=== PATIENT | male | born 1930 | race Caucasian/White ===

== ENCOUNTER 2017-04-01 07:03 | Inpatient (IN) | payer MEDICARE, MEDICAID ==
[2017-03-27 12:04] LABS: PRE OP PROTIME 10.7 SECONDS (9.0-12.0)
[2017-03-27 12:06] LABS: BASOPHILS % (AUTO) 0.7 % (0-1); EOSINOPHILS # (AUTO) 0.2 X10'3 (0-0.9); EOSINOPHILS % (AUTO) 2.8 % (0-6); LYMPHOCYTES # (AUTO) 1.4 X10'3 (1.1-4.8); LYMPHOCYTES % (AUTO) 19.2 % (21-51); MEAN CORPUSCULAR HEMOGLOBIN 32.8 PG (27.0-31.0); MEAN CORPUSCULAR HGB CONC 34.3 % (33.0-36.5); MEAN CORPUSCULAR VOLUME 95.6 FL (78-98); MEAN PLATELET VOLUME 7.4 FL (7.4-10.4); MONOCYTES # (AUTO) 0.7 X10'3 (0-0.9); MONOCYTES % (AUTO) 10.3 % (2-12); NEUTROPHILS # (AUTO) 4.8 X10'3 (1.8-7.7); PRE OP HEMATOCRIT 40.9 % (42.0-52.0); PRE OP PLATELET COUNT 188 X10'3 (140-440); RED BLOOD COUNT 4.27 X10'6 (4.70-6.10); RED CELL DISTRIBUTION WIDTH 13.9 % (11.5-14.5)
[2017-03-27 12:07] LABS: ALBUMIN 3.8 G/DL (3.4-5.0); ALBUMIN/GLOBULIN RATIO 1.1 (1.1-1.5); ALKALINE PHOSPHATASE 97 IU/L (46-116); BLOOD UREA NITROGEN 21 MG/DL (7-18); BUN/CREATININE RATIO 15.4 (5.4-32.0); CALCIUM 8.9 MG/DL (8.5-10.1); CHLORIDE 106 MMOL/L (99-107); CREATININE 1.36 MG/DL (0.60-1.10); PRE OP ALT 34 U/L (30-65); PRE OP ANION GAP 9 (8-16); PRE OP AST 19 U/L (10-37); PRE OP BILIRUB, TOTAL 0.4 MG/DL (0.0-1.0); PRE OP GLUCOSE 118 MG/DL (70-104); PRE OP POTASSIUM 3.9 MMOL/L (3.4-5.1); PRE OP SODIUM 143 MMOL/L (135-145); TOTAL CARBON DIOXIDE 28.2 MMOL/L (24-32); TOTAL PROTEIN 7.4 G/DL (6.4-8.2); eGFR 50 ML/MIN
[2017-04-01] VITALS (22 sets, daily range): BP systolic 98–185; BP diastolic 49–86
[~2017-04-01] VITALS: Ht 175.3 cm; Wt 79.4 kg
[2017-04-01] MEDS: HYDROmorphone/NS 1 mg/ml CADD 50 ML IV SCH ×4 (01:00→21:00)
[~2017-04-01 07:03] MED LIST: APIX5TAB3 PO; DILT180C53 PO; FAMO20TA8 PO; FERR325T39 PO; FISH1CAP15 PO; FLUD0.1T PO; HYDR-565 PO; LISI10TA4 PO; OXYB5TAB80 PO; PRAV80TA3 PO; SERT100T10 PO; SUCR1TAB34 PO; cefazolin/dext.iso 2gm/50ml 50 ML IV ONE; famotidine 20mg tablet PO ONE
[2017-04-01] MEDS: ringers solution, lacted 1,000 ML IV SCH ×2 (07:39→14:19)
[2017-04-01] MEDS ORDERED: LIDOcaine 1% (10mg/ml) 2ml vial ONE (09:22)
[2017-04-01] MEDS ORDERED: heparin 10,000 units/1 ML INJ ONE (09:23)
[2017-04-01] MEDS ORDERED: ceFAZolin 1000mg inj ONE (09:23)
[2017-04-01] MEDS ORDERED: etomidate 2mg/ml inj. ONE (09:54)
[2017-04-01] MEDS ORDERED: fentaNYL/PF 50MCG/1 ML 2ML syringe ONE ×3 (09:54→11:44)
[2017-04-01] MEDS ORDERED: LIDOcaine 2% (20mg/ml) 5ml vial ONE (09:57)
[2017-04-01] MEDS ORDERED: rocuronium 10mg/ml inj IV ONE (09:57)
[2017-04-01] MEDS ORDERED: sevoflurane 250ml liquid IH ONE (10:00)
[2017-04-01] MEDS ORDERED: dexamethasone sod phosphate 4mg/ml inj. ONE (10:30)
[2017-04-01] MEDS ORDERED: propofol inj 20 ML IV ONE (10:32)
[2017-04-01] MEDS ORDERED: neostigmine methylsulfate 1 MG/ML 10ml vial ONE (11:12)
[2017-04-01] MEDS ORDERED: labetalol 5mg/ml 20ml inj. IV ONE (11:12)
[2017-04-01] MEDS ORDERED: ondansetron/PF 4mg/2ml inj ONE (11:12)
[2017-04-01] MEDS ORDERED: ePHEDrine 50MG/ML INJ. ONE (11:12)
[2017-04-01] MEDS ORDERED: glycopyrrolate 0.2mg/ml inj ONE (11:12)
[2017-04-01 12:41] LABS: ISTAT HGB 11.2 g/dl (14.0-18.0); ISTAT IONIZED CALCIUM 1.27 mmol/L (1.03-1.32)
[2017-04-01] MEDS ORDERED: morphine 2 MG/ML inj. syringe ONE (12:48)
[2017-04-01] MEDS ORDERED: ondansetron/PF 4mg/2ml inj IV PRN ×2 (12:50→13:15)
[2017-04-01] MEDS ORDERED: HYDROmorphone inj. 0.5 MG/0.5 ML DISP.SYRIN IV PRN (12:50)
[2017-04-01] MEDS ORDERED: morphine 2 MG/ML inj. syringe IV PRN (12:50)
[2017-04-01] MEDS ORDERED: ringers solution, lacted 1,000 ML IV SCH (12:50)
[2017-04-01] MEDS: cefazolin 1gm/NS 100mL 100 ML IV SCH (15:34)
[2017-04-01] MEDS ORDERED: CADD PCA waste documentation MC SCH (15:55)
[2017-04-01] MEDS ORDERED: HYDROcodone/acetaminophen 10/325mg tab PO SCH (19:35)
[2017-04-01] MEDS ORDERED: sucralfate 1 gm tablet PO SCH (20:00)
[2017-04-01] MEDS ORDERED: apixaban 5mg tablet PO SCH (20:00)
[2017-04-01] MEDS: fludrocortisone acetate 0.1mg tablet PO SCH (21:32)
[2017-04-01] MEDS: sucralfate 1 gm tablet PO SCH (21:33)
[2017-04-01] MEDS: atorvastatin 20mg tablet PO SCH (21:33)
[2017-04-01] MEDS: diltiazem CD 180mg cap (once-daily) PO SCH (21:33)
[2017-04-01] MEDS: famotidine 20mg tablet PO SCH (21:33)
[2017-04-01] MEDS: ferrous sulfate 325mg tablet PO SCH (21:33)
[2017-04-01] MEDS: oxybutynin 5mg tablet PO SCH (21:34)
[2017-04-02] VITALS (18 sets, daily range): BP systolic 88–157; BP diastolic 47–79
[2017-04-02] MEDS: HYDROmorphone/NS 1 mg/ml CADD 50 ML IV SCH ×12 (01:00→23:00)
[2017-04-02] MEDS: cefazolin 1gm/NS 100mL 100 ML IV SCH ×2 (01:10→07:28)
[2017-04-02] MEDS ORDERED: metoprolol tartrate 1mg/ml inj IV ONE ×2 (02:40→02:45)
[2017-04-02 05:54] LABS: BASOPHILS % (AUTO) 0 % (0-1); EOSINOPHILS # (AUTO) 0.1 X10'3 (0-0.9); EOSINOPHILS % (AUTO) 1.2 % (0-6); HEMATOCRIT 30.1 % (42.0-52.0); HEMOGLOBIN 10.2 g/dl (14.0-17.9); LYMPHOCYTES # (AUTO) 0.9 X10'3 (1.1-4.8); LYMPHOCYTES % (AUTO) 7.3 % (21-51); MEAN CORPUSCULAR HEMOGLOBIN 32.9 PG (27.0-31.0); MEAN CORPUSCULAR HGB CONC 33.9 % (33.0-36.5); MEAN CORPUSCULAR VOLUME 97.3 FL (78-98); MEAN PLATELET VOLUME 7.9 FL (7.4-10.4); MONOCYTES # (AUTO) 1.2 X10'3 (0-0.9); MONOCYTES % (AUTO) 10.4 % (2-12); NEUTROPHILS # (AUTO) 9.6 X10'3 (1.8-7.7); NEUTROPHILS % (AUTO) 81.1 % (42-75); PLATELET COUNT 159 X10'3 (140-440); RED BLOOD COUNT 3.09 X10'6 (4.70-6.10); RED CELL DISTRIBUTION WIDTH 13.8 % (11.5-14.5); WHITE BLOOD COUNT 11.9 X10'3 (4.5-11.0)
[2017-04-02 06:13] LABS: ALANINE AMINOTRANSFERASE 25 U/L (12-78); ALBUMIN 3.1 G/DL (3.4-5.0); ALBUMIN/GLOBULIN RATIO 0.8 (1.1-1.5); ALKALINE PHOSPHATASE 79 IU/L (46-116); ANION GAP 8 (8-16); ASPARTATE AMINO TRANSFERASE 37 U/L (10-37); BILIRUBIN,TOTAL 0.3 MG/DL (0.1-1.0); BLOOD UREA NITROGEN 27 MG/DL (7-18); BUN/CREATININE RATIO 16.1 (5.4-32.0); CALCIUM 8.4 MG/DL (8.5-10.1); CHLORIDE 109 MMOL/L (99-107); CREATININE 1.68 MG/DL (0.60-1.10); GLUCOSE 134 MG/DL (70-104); MAGNESIUM 1.9 MG/DL (1.5-2.4); PHOSPHORUS 3.3 MG/DL (2.3-4.5); POTASSIUM 4.9 MMOL/L (3.5-5.1); SODIUM 144 MMOL/L (135-145); TOTAL CARBON DIOXIDE 27.4 MMOL/L (24-32); TOTAL PROTEIN 6.8 G/DL (6.4-8.2); eGFR 39 ML/MIN
[2017-04-02] MEDS: sucralfate 1 gm tablet PO SCH ×2 (07:28→18:40)
[2017-04-02] MEDS: sertraline 50mg tablet PO SCH (07:29)
[2017-04-02] MEDS: famotidine 20mg tablet PO SCH ×2 (07:29→20:38)
[2017-04-02] MEDS: ferrous sulfate 325mg tablet PO SCH ×2 (07:29→20:39)
[2017-04-02] MEDS: oxybutynin 5mg tablet PO SCH ×2 (07:29→20:40)
[2017-04-02] MEDS: OMEGA-3/DHA/EPA/FISH OIL 1 EACH CAPSULE.DR PO SCH (07:29)
[2017-04-02] MEDS: lisinopril 5mg tablet PO SCH (07:30)
[2017-04-02] MEDS ORDERED: enoxaparin 40mg/0.4ml syringe SQ SCH ×2 (08:00)
[2017-04-02] MEDS: diltiazem CD 180mg cap (once-daily) PO SCH (20:38)
[2017-04-02] MEDS: atorvastatin 20mg tablet PO SCH (20:39)
[2017-04-02] MEDS: fludrocortisone acetate 0.1mg tablet PO SCH (20:40)
[2017-04-03] VITALS: BP 116/64
[2017-04-03] MEDS: HYDROmorphone/NS 1 mg/ml CADD 50 ML IV SCH ×12 (01:00→23:00)
[2017-04-03] MEDS ORDERED: furosemide 20 MG/2 ML vial IV ONE (01:15)
[2017-04-03 07:30] VITALS: BP 131/57
[2017-04-03] MEDS: sertraline 50mg tablet PO SCH (08:16)
[2017-04-03] MEDS: famotidine 20mg tablet PO SCH ×2 (08:16→20:04)
[2017-04-03] MEDS: oxybutynin 5mg tablet PO SCH ×2 (08:17→20:04)
[2017-04-03] MEDS: ferrous sulfate 325mg tablet PO SCH ×2 (08:17→20:04)
[2017-04-03] MEDS: lisinopril 5mg tablet PO SCH (08:17)
[2017-04-03] MEDS: sucralfate 1 gm tablet PO SCH ×2 (08:56→17:27)
[2017-04-03] MEDS: apixaban 5mg tablet PO SCH ×2 (09:18→20:04)
[2017-04-03] MEDS: OMEGA-3/DHA/EPA/FISH OIL 1 EACH CAPSULE.DR PO SCH (09:18)
[2017-04-03 11:30] VITALS: BP 98/51
[2017-04-03 19:05] VITALS: BP 103/53
[2017-04-03] MEDS: atorvastatin 20mg tablet PO SCH (20:04)
[2017-04-03] MEDS: fludrocortisone acetate 0.1mg tablet PO SCH (20:04)
[2017-04-03] MEDS: diltiazem CD 180mg cap (once-daily) PO SCH (20:04)
[2017-04-04] VITALS: BP 117/61
[2017-04-04] MEDS: HYDROmorphone/NS 1 mg/ml CADD 50 ML IV SCH ×12 (01:00→23:00)
[2017-04-04 07:46] VITALS: BP 105/62
[2017-04-04] MEDS: ferrous sulfate 325mg tablet PO SCH ×2 (07:51→20:54)
[2017-04-04] MEDS: famotidine 20mg tablet PO SCH ×2 (07:51→20:54)
[2017-04-04] MEDS: lisinopril 5mg tablet PO SCH (07:52)
[2017-04-04] MEDS: apixaban 5mg tablet PO SCH ×2 (07:52→20:54)
[2017-04-04] MEDS: sertraline 50mg tablet PO SCH (07:52)
[2017-04-04] MEDS: OMEGA-3/DHA/EPA/FISH OIL 1 EACH CAPSULE.DR PO SCH (07:52)
[2017-04-04] MEDS: sucralfate 1 gm tablet PO SCH ×2 (07:52→17:11)
[2017-04-04] MEDS: enoxaparin 40mg/0.4ml syringe SUBCUT SCH (07:56)
[2017-04-04] MEDS: oxybutynin 5mg tablet PO SCH ×2 (07:57→20:54)
[2017-04-04 20:00] VITALS: BP 108/44
[2017-04-04] MEDS: fludrocortisone acetate 0.1mg tablet PO SCH (20:54)
[2017-04-04] MEDS: diltiazem CD 180mg cap (once-daily) PO SCH (20:54)
[2017-04-04] MEDS: atorvastatin 20mg tablet PO SCH (20:54)
[2017-04-04 23:48] VITALS: BP 121/58
[2017-04-05] MEDS: HYDROmorphone/NS 1 mg/ml CADD 50 ML IV SCH ×6 (01:00→11:00)
[2017-04-05 08:00] VITALS: BP 139/65
[2017-04-05] MEDS: OMEGA-3/DHA/EPA/FISH OIL 1 EACH CAPSULE.DR PO SCH (09:08)
[2017-04-05] MEDS: famotidine 20mg tablet PO SCH ×2 (09:08→20:53)
[2017-04-05] MEDS: apixaban 5mg tablet PO SCH ×2 (09:08→20:53)
[2017-04-05] MEDS: oxybutynin 5mg tablet PO SCH ×2 (09:08→20:53)
[2017-04-05] MEDS: sucralfate 1 gm tablet PO SCH ×2 (09:08→17:45)
[2017-04-05] MEDS: ferrous sulfate 325mg tablet PO SCH ×2 (09:08→20:53)
[2017-04-05] MEDS: lisinopril 5mg tablet PO SCH (09:09)
[2017-04-05] MEDS: sertraline 50mg tablet PO SCH (09:09)
[2017-04-05] MEDS: enoxaparin 40mg/0.4ml syringe SUBCUT SCH (09:09)
[2017-04-05 12:00] VITALS: BP 142/69
[2017-04-05] MEDS ORDERED: HYDROcodone/acetaminophen 10/325mg tab PO PRN (14:35)
[2017-04-05 18:00] VITALS: BP 152/66
[2017-04-05] MEDS: diltiazem CD 180mg cap (once-daily) PO SCH (20:52)
[2017-04-05] MEDS: atorvastatin 20mg tablet PO SCH (20:53)
[2017-04-05] MEDS: fludrocortisone acetate 0.1mg tablet PO SCH (20:53)
[2017-04-05] MEDS: HYDROcodone/acetaminophen 10/325mg tab PO PRN (20:54)
[2017-04-06] VITALS: BP 124/57
[2017-04-06] MEDS: HYDROcodone/acetaminophen 10/325mg tab PO PRN ×2 (05:47→15:23)
[2017-04-06 08:00] VITALS: BP 128/68
[2017-04-06] MEDS: OMEGA-3/DHA/EPA/FISH OIL 1 EACH CAPSULE.DR PO SCH (08:04)
[2017-04-06] MEDS: apixaban 5mg tablet PO SCH (08:05)
[2017-04-06] MEDS: sertraline 50mg tablet PO SCH (08:05)
[2017-04-06] MEDS: lisinopril 5mg tablet PO SCH (08:05)
[2017-04-06] MEDS: enoxaparin 40mg/0.4ml syringe SUBCUT SCH (08:05)
[2017-04-06] MEDS: sucralfate 1 gm tablet PO SCH (08:05)
[2017-04-06] MEDS: famotidine 20mg tablet PO SCH (08:05)
[2017-04-06] MEDS: oxybutynin 5mg tablet PO SCH (08:05)
[2017-04-06] MEDS: ferrous sulfate 325mg tablet PO SCH (08:05)
[2017-04-06 11:00] VITALS: BP 111/48
== END 2017-04-06 16:10 | DRG 271 ==
LOC: PAS IN 07:03 → EDSTATUS 10:15 → ICU 2S 13:35 → MED 3N 04-02 16:20
PROVIDERS: ADMIT Surgery; ATTEND Surgery
PROC: 041H0JQ Bypass Right External Iliac Artery to Lower Extremity Artery with Synthetic Substitute, Open Approach (ICD-10-PCS; principal; 2017-04-01 09:56)
DX: I73.9 Peripheral vascular disease, unspecified (principal); I69.351 Hemiplegia and hemiparesis following cerebral infarction affecting right dominant side; I48.91 Unspecified atrial fibrillation; M19.90 Unspecified osteoarthritis, unspecified site; I69.320 Aphasia following cerebral infarction; I25.2 Old myocardial infarction; Z79.899 Other long term (current) drug therapy; Z85.9 Personal history of malignant neoplasm, unspecified; Z82.5 Family history of asthma and other chronic lower respiratory diseases; Z80.9 Family history of malignant neoplasm, unspecified; Z87.891 Personal history of nicotine dependence
CPT/HCPCS: 36415; 71046; 80047; 80053; 83735; 84100; 84484; 85025; 85610; 85730; 86885; 86900; 86901; 87070; 94760; 97110; 97162; 97530; A6213; A6255; A6258; A6446; A6449; A7000; C1758; C1768; J0690; J1100; J1170; J1644; J1650; J1940; J2001; J2270; J2405; J2704; J2710; J3010; J3490; J7030; J7120

== ENCOUNTER 2017-06-15 11:18 | Emergency (ER) | payer MEDICARE, MEDICAID ==
[~2017-06-15] VITALS: Ht 172.7 cm; Wt 80.0 kg
[~2017-06-15 11:18] MED LIST changes: -cefazolin/dext.iso 2gm/50ml 50 ML IV ONE; -famotidine 20mg tablet PO ONE
[2017-06-15] MEDS ORDERED: MORPHINE 2MG in 2ml NS syringe IV PRN (12:10)
[2017-06-15] MEDS ORDERED: HYDROcodone/acetaminophen 5mg/325mg tablet PO ONE (12:10)
[2017-06-15 12:14] LABS: BASOPHILS % (AUTO) 0.5 % (0-1); EOSINOPHILS # (AUTO) 0.3 X10'3 (0-0.9); EOSINOPHILS % (AUTO) 3.8 % (0-6); HEMATOCRIT 36.2 % (42.0-52.0); HEMOGLOBIN 12.2 g/dl (14.0-17.9); LYMPHOCYTES # (AUTO) 1.7 X10'3 (1.1-4.8); MEAN CORPUSCULAR HEMOGLOBIN 31.6 PG (27.0-31.0); MEAN CORPUSCULAR HGB CONC 33.6 % (33.0-36.5); MEAN CORPUSCULAR VOLUME 94.1 FL (78-98); MEAN PLATELET VOLUME 7.2 FL (7.4-10.4); MONOCYTES # (AUTO) 0.9 X10'3 (0-0.9); MONOCYTES % (AUTO) 12.8 % (2-12); NEUTROPHILS # (AUTO) 4.1 X10'3 (1.8-7.7); NEUTROPHILS % (AUTO) 58.9 % (42-75); PLATELET COUNT 169 X10'3 (140-440); RED BLOOD COUNT 3.85 X10'6 (4.70-6.10); RED CELL DISTRIBUTION WIDTH 14.8 % (11.5-14.5)
[2017-06-15 12:23] LABS: ALBUMIN 3.3 G/DL (3.4-5.0); ANION GAP 9 (8-16); ASPARTATE AMINO TRANSFERASE 14 U/L (10-37); BILIRUBIN,TOTAL 0.3 MG/DL (0.1-1.0); BLOOD UREA NITROGEN 24 MG/DL (7-18); BUN/CREATININE RATIO 20.3 (5.4-32.0); CALCIUM 8.9 MG/DL (8.5-10.1); CHLORIDE 107 MMOL/L (99-107); CREATININE 1.18 MG/DL (0.60-1.10); GLUCOSE 96 MG/DL (70-104); POTASSIUM 4.6 MMOL/L (3.5-5.1); SODIUM 142 MMOL/L (135-145); TOTAL CARBON DIOXIDE 26.4 MMOL/L (24-32); TOTAL PROTEIN 6.7 G/DL (6.4-8.2); eGFR 59 ML/MIN
[2017-06-15 12:24] LABS: ALANINE AMINOTRANSFERASE 23 U/L (12-78); ALKALINE PHOSPHATASE 84 IU/L (46-116)
[2017-06-15 12:33] LABS: PARTIAL THROMBOPLASTIN TIME 29 SECONDS (22-32); PROTHROMBIN TIME 10.8 SECONDS (9.0-12.0)
[2017-06-15 12:56] VITALS: BP 153/66
[2017-06-15] MEDS ORDERED: POTA25TA11 PO (13:16)
[2017-06-15] MEDS ORDERED: FURO-150 PO (13:16)
== END 2017-06-15 13:23 | disposition home or self-care (01) ==
LOC: ER 11:19
DX: S70.01XA Contusion of right hip, initial encounter (principal); I25.10 Atherosclerotic heart disease of native coronary artery without angina pectoris; I10 Essential (primary) hypertension; G89.29 Other chronic pain; F03.90 Unspecified dementia, unspecified severity, without behavioral disturbance, psychotic disturbance, mood disturbance, and anxiety; E78.00 Pure hypercholesterolemia, unspecified; Z86.73 Personal history of transient ischemic attack (TIA), and cerebral infarction without residual deficits; Z79.899 Other long term (current) drug therapy; W18.30XA Fall on same level, unspecified, initial encounter; Y93.17 Activity, water skiing and wake boarding; Y92.89 Other specified places as the place of occurrence of the external cause; Y99.8 Other external cause status
CPT/HCPCS: 36415; 71045; 73502; 80053; 85025; 85610; 85730; 86885; 86900; 86901; 93005; 96374; 99285; J2274

== ENCOUNTER 2017-08-17 11:21 | Inpatient (IN) | payer MEDICARE, MEDICAID ==
[~2017-08-17] VITALS: Ht 175.3 cm; Wt 93.0 kg
[~2017-08-17 11:21] MED LIST changes: +FURO-150 PO; +POTA25TA11 PO
[2017-08-17 11:57] LABS: BASOPHILS % (AUTO) 0.5 % (0-1); EOSINOPHILS # (AUTO) 0.3 X10'3 (0-0.9); EOSINOPHILS % (AUTO) 3.5 % (0-6); HEMATOCRIT 35.5 % (42.0-52.0); HEMOGLOBIN 11.9 g/dl (14.0-17.9); LYMPHOCYTES # (AUTO) 1.4 X10'3 (1.1-4.8); LYMPHOCYTES % (AUTO) 17.2 % (21-51); MEAN CORPUSCULAR HEMOGLOBIN 31.7 PG (27.0-31.0); MEAN CORPUSCULAR HGB CONC 33.5 % (33.0-36.5); MEAN CORPUSCULAR VOLUME 94.8 FL (78-98); MEAN PLATELET VOLUME 7.6 FL (7.4-10.4); MONOCYTES # (AUTO) 0.9 X10'3 (0-0.9); MONOCYTES % (AUTO) 11.4 % (2-12); NEUTROPHILS # (AUTO) 5.5 X10'3 (1.8-7.7); NEUTROPHILS % (AUTO) 67.4 % (42-75); PLATELET COUNT 196 X10'3 (140-440); RED BLOOD COUNT 3.75 X10'6 (4.70-6.10); RED CELL DISTRIBUTION WIDTH 13.7 % (11.5-14.5); WHITE BLOOD COUNT 8.2 X10'3 (4.5-11.0)
[2017-08-17 12:10] LABS: ALANINE AMINOTRANSFERASE 54 U/L (12-78); ALBUMIN 3.1 G/DL (3.4-5.0); ALBUMIN/GLOBULIN RATIO 0.7 (1.1-1.5); ALKALINE PHOSPHATASE 99 IU/L (46-116); ANION GAP 5 (8-16); ASPARTATE AMINO TRANSFERASE 63 U/L (10-37); BILIRUBIN,TOTAL 0.4 MG/DL (0.1-1.0); BLOOD UREA NITROGEN 27 MG/DL (7-18); CALCIUM 9.1 MG/DL (8.5-10.1); CHLORIDE 111 MMOL/L (99-107); CREATININE 1.35 MG/DL (0.60-1.10); GLUCOSE 110 MG/DL (70-104); POTASSIUM 3.8 MMOL/L (3.5-5.1); SODIUM 144 MMOL/L (135-145); TOTAL CARBON DIOXIDE 28.4 MMOL/L (24-32); TOTAL PROTEIN 7.4 G/DL (6.4-8.2); eGFR 50 ML/MIN
[2017-08-17] MEDS ORDERED: ondansetron/PF 4mg/2ml inj IV PRN (15:05)
[2017-08-17] MEDS ORDERED: potassium Cl 40MEQ/NS 500ml 500 ML IV PRN ×2 (15:05)
[2017-08-17] MEDS ORDERED: ipratropium/albuterol 3ml nebule NEB PRN (15:05)
[2017-08-17] MEDS ORDERED: magnesium 1gm/100ml D5W IVPB 50 ML IV PRN (15:05)
[2017-08-17] MEDS ORDERED: magnesium 4gm in 100ml NS 100 ML IV PRN (15:05)
[2017-08-17] MEDS ORDERED: acetaminophen 325mg tablet PO PRN (15:05)
[2017-08-17] MEDS ORDERED: potassium Cl 20 mEq SR tablet PO PRN ×2 (15:05)
[2017-08-17] MEDS ORDERED: mag hydrox/Alum hydrox/simeth 30ml oral suspension PO PRN (15:05)
[2017-08-17] MEDS ORDERED: benzonatate 100mg capsule PO PRN (15:05)
[2017-08-17] MEDS ORDERED: HYDROcodone/acetaminophen 10/325mg tab PO PRN (15:20)
[2017-08-17 16:05] VITALS: BP 176/68
[2017-08-17] MEDS: normal saline 1000ml 1,000 ML IV SCH (17:15)
[2017-08-17 18:38] VITALS: BP 191/70
[2017-08-17 20:00] VITALS: BP 186/71
[2017-08-17] MEDS: fludrocortisone acetate 0.1mg tablet PO SCH (20:07)
[2017-08-17] MEDS: diltiazem CD 180mg cap (once-daily) PO SCH (20:07)
[2017-08-17] MEDS: sucralfate 1 gm tablet PO SCH (20:07)
[2017-08-17] MEDS: oxybutynin 5mg tablet PO SCH (20:07)
[2017-08-17] MEDS: methylPREDNISolone sod succ 125mg/2ml vial IV SCH (20:08)
[2017-08-17] MEDS: ferrous sulfate 325mg tablet PO SCH (20:08)
[2017-08-17] MEDS: famotidine 20mg tablet PO SCH (20:08)
[2017-08-17] MEDS: apixaban 5mg tablet PO SCH (20:08)
[2017-08-17] MEDS: pravastatin 40mg tablet PO SCH (20:08)
[2017-08-17] MEDS: docusate sod 100mg capsule PO SCH (20:08)
[2017-08-17 21:18] VITALS: BP 186/71
[2017-08-17 22:50] VITALS: BP 170/84
[2017-08-18] MEDS: normal saline 1000ml 1,000 ML IV SCH (03:06)
[2017-08-18 05:00] VITALS: BP 151/66
[2017-08-18 05:40] LABS: BASOPHILS % (AUTO) 0.2 % (0-1); EOSINOPHILS % (AUTO) 0 % (0-6); HEMATOCRIT 37.8 % (42.0-52.0); HEMOGLOBIN 12.7 g/dl (14.0-17.9); LYMPHOCYTES # (AUTO) 0.7 X10'3 (1.1-4.8); LYMPHOCYTES % (AUTO) 10.8 % (21-51); MEAN CORPUSCULAR HEMOGLOBIN 31.8 PG (27.0-31.0); MEAN CORPUSCULAR HGB CONC 33.5 % (33.0-36.5); MEAN CORPUSCULAR VOLUME 95.1 FL (78-98); MEAN PLATELET VOLUME 7.7 FL (7.4-10.4); MONOCYTES # (AUTO) 0.1 X10'3 (0-0.9); MONOCYTES % (AUTO) 1.1 % (2-12); NEUTROPHILS # (AUTO) 5.8 X10'3 (1.8-7.7); NEUTROPHILS % (AUTO) 87.9 % (42-75); PLATELET COUNT 202 X10'3 (140-440); RED BLOOD COUNT 3.98 X10'6 (4.70-6.10); RED CELL DISTRIBUTION WIDTH 13.5 % (11.5-14.5); WHITE BLOOD COUNT 6.6 X10'3 (4.5-11.0)
[2017-08-18 06:00] LABS: ALANINE AMINOTRANSFERASE 48 U/L (12-78); ALBUMIN 2.8 G/DL (3.4-5.0); ALBUMIN/GLOBULIN RATIO 0.6 (1.1-1.5); ALKALINE PHOSPHATASE 97 IU/L (46-116); ANION GAP 11 (8-16); ASPARTATE AMINO TRANSFERASE 42 U/L (10-37); BILIRUBIN,TOTAL 0.3 MG/DL (0.1-1.0); BLOOD UREA NITROGEN 21 MG/DL (7-18); BUN/CREATININE RATIO 17.1 (5.4-32.0); CALCIUM 8.8 MG/DL (8.5-10.1); CHLORIDE 107 MMOL/L (99-107); CHOL/HDL RATIO 3.4 (0.00-4.99); CHOLESTEROL 108 MG/DL (0-200); CREATININE 1.23 MG/DL (0.60-1.10); GLUCOSE 165 MG/DL (70-104); HDL CHOLESTEROL 32 MG/DL (35-60); LDL CHOLESTEROL 63 MG/DL (50-100); POTASSIUM 4.5 MMOL/L (3.5-5.1); SODIUM 142 MMOL/L (135-145); TOTAL CARBON DIOXIDE 23.6 MMOL/L (24-32); TOTAL PROTEIN 7.2 G/DL (6.4-8.2); TRIGLYCERIDES 66 MG/DL (20-135); eGFR 56 ML/MIN
[2017-08-18] MEDS: K and/or MAG REPLACEMENT MC SCH (08:00)
[2017-08-18] MEDS: oxybutynin 5mg tablet PO SCH ×2 (09:12→19:26)
[2017-08-18] MEDS: sertraline 50mg tablet PO SCH (09:12)
[2017-08-18] MEDS: famotidine 20mg tablet PO SCH ×2 (09:12→19:26)
[2017-08-18] MEDS: ferrous sulfate 325mg tablet PO SCH ×2 (09:13→19:27)
[2017-08-18] MEDS: sucralfate 1 gm tablet PO SCH ×2 (09:13→19:24)
[2017-08-18] MEDS: apixaban 5mg tablet PO SCH ×2 (09:13→19:27)
[2017-08-18] MEDS: OMEGA-3/DHA/EPA/FISH OIL 1 EACH CAPSULE.DR PO SCH (09:13)
[2017-08-18] MEDS: lisinopril 10 MG tablet PO SCH (09:13)
[2017-08-18] MEDS: docusate sod 100mg capsule PO SCH ×2 (09:13→19:31)
[2017-08-18] MEDS: methylPREDNISolone sod succ 125mg/2ml vial IV SCH ×2 (09:16→19:24)
[2017-08-18 10:00] VITALS: BP 152/67
[2017-08-18 18:00] VITALS: BP 166/66
[2017-08-18] MEDS: pravastatin 40mg tablet PO SCH (19:26)
[2017-08-18] MEDS: fludrocortisone acetate 0.1mg tablet PO SCH (19:26)
[2017-08-18] MEDS: diltiazem CD 180mg cap (once-daily) PO SCH (19:26)
[2017-08-18 22:00] VITALS: BP 160/85
[2017-08-19 05:00] VITALS: BP 118/64
[2017-08-19 06:02] LABS: BASOPHILS % (AUTO) 0.1 % (0-1); EOSINOPHILS # (AUTO) 0.1 X10'3 (0-0.9); EOSINOPHILS % (AUTO) 0.8 % (0-6); HEMATOCRIT 33.2 % (42.0-52.0); HEMOGLOBIN 11.3 g/dl (14.0-17.9); LYMPHOCYTES # (AUTO) 0.7 X10'3 (1.1-4.8); LYMPHOCYTES % (AUTO) 5.4 % (21-51); MEAN CORPUSCULAR HEMOGLOBIN 31.9 PG (27.0-31.0); MEAN CORPUSCULAR HGB CONC 33.9 % (33.0-36.5); MEAN CORPUSCULAR VOLUME 94.2 FL (78-98); MEAN PLATELET VOLUME 8.1 FL (7.4-10.4); MONOCYTES # (AUTO) 0.4 X10'3 (0-0.9); MONOCYTES % (AUTO) 2.8 % (2-12); NEUTROPHILS # (AUTO) 12.4 X10'3 (1.8-7.7); NEUTROPHILS % (AUTO) 90.9 % (42-75); PLATELET COUNT 199 X10'3 (140-440); RED BLOOD COUNT 3.53 X10'6 (4.70-6.10); RED CELL DISTRIBUTION WIDTH 13.5 % (11.5-14.5); WHITE BLOOD COUNT 13.7 X10'3 (4.5-11.0)
[2017-08-19 06:23] LABS: ALANINE AMINOTRANSFERASE 45 U/L (12-78); ALBUMIN 2.7 G/DL (3.4-5.0); ALBUMIN/GLOBULIN RATIO 0.7 (1.1-1.5); ALKALINE PHOSPHATASE 90 IU/L (46-116); ANION GAP 11 (8-16); ASPARTATE AMINO TRANSFERASE 30 U/L (10-37); BILIRUBIN,TOTAL 0.2 MG/DL (0.1-1.0); BLOOD UREA NITROGEN 32 MG/DL (7-18); BUN/CREATININE RATIO 26.2 (5.4-32.0); CALCIUM 8.3 MG/DL (8.5-10.1); CHLORIDE 107 MMOL/L (99-107); CREATININE 1.22 MG/DL (0.60-1.10); GLUCOSE 179 MG/DL (70-104); MAGNESIUM 1.9 MG/DL (1.5-2.4); POTASSIUM 3.9 MMOL/L (3.5-5.1); SODIUM 142 MMOL/L (135-145); TOTAL CARBON DIOXIDE 23.7 MMOL/L (24-32); TOTAL PROTEIN 6.7 G/DL (6.4-8.2); eGFR 57 ML/MIN
[2017-08-19] MEDS: K and/or MAG REPLACEMENT MC SCH (08:04)
[2017-08-19] MEDS: ferrous sulfate 325mg tablet PO SCH ×2 (08:14→20:38)
[2017-08-19] MEDS: methylPREDNISolone sod succ 125mg/2ml vial IV SCH (08:14)
[2017-08-19] MEDS: docusate sod 100mg capsule PO SCH (08:14)
[2017-08-19] MEDS: apixaban 5mg tablet PO SCH ×2 (08:14→20:38)
[2017-08-19] MEDS: sertraline 50mg tablet PO SCH (08:14)
[2017-08-19] MEDS: famotidine 20mg tablet PO SCH ×2 (08:14→20:38)
[2017-08-19] MEDS: oxybutynin 5mg tablet PO SCH ×2 (08:14→20:38)
[2017-08-19] MEDS: lisinopril 10 MG tablet PO SCH (08:14)
[2017-08-19] MEDS: OMEGA-3/DHA/EPA/FISH OIL 1 EACH CAPSULE.DR PO SCH (08:16)
[2017-08-19] MEDS: sucralfate 1 gm tablet PO SCH ×3 (08:21→20:39)
[2017-08-19 10:00] VITALS: BP 164/64
[2017-08-19 18:00] VITALS: BP 167/67
[2017-08-19 20:00] VITALS: BP 170/64
[2017-08-19] MEDS: pravastatin 40mg tablet PO SCH (20:37)
[2017-08-19] MEDS: fludrocortisone acetate 0.1mg tablet PO SCH (20:37)
[2017-08-19] MEDS: diltiazem CD 180mg cap (once-daily) PO SCH (20:37)
[2017-08-19] MEDS: normal saline 1000ml 1,000 ML IV SCH ×2 (20:41→20:45)
[2017-08-19 20:51] VITALS: BP_SYST 156; BP_SYST 168; BP_SYST 170; BP_DIAS 50; BP_DIAS 57; BP_DIAS 64
[2017-08-19 22:00] VITALS: BP 184/72
[2017-08-20 05:42] LABS: BASOPHILS % (AUTO) 0.1 % (0-1); EOSINOPHILS # (AUTO) 0.2 X10'3 (0-0.9); EOSINOPHILS % (AUTO) 1.1 % (0-6); HEMATOCRIT 33.8 % (42.0-52.0); HEMOGLOBIN 11.4 g/dl (14.0-17.9); LYMPHOCYTES # (AUTO) 1.3 X10'3 (1.1-4.8); LYMPHOCYTES % (AUTO) 8.2 % (21-51); MEAN CORPUSCULAR HEMOGLOBIN 31.9 PG (27.0-31.0); MEAN CORPUSCULAR HGB CONC 33.7 % (33.0-36.5); MEAN CORPUSCULAR VOLUME 94.5 FL (78-98); MEAN PLATELET VOLUME 8.1 FL (7.4-10.4); MONOCYTES # (AUTO) 1.2 X10'3 (0-0.9); MONOCYTES % (AUTO) 7.6 % (2-12); NEUTROPHILS # (AUTO) 12.7 X10'3 (1.8-7.7); PLATELET COUNT 209 X10'3 (140-440); RED BLOOD COUNT 3.58 X10'6 (4.70-6.10); RED CELL DISTRIBUTION WIDTH 13.4 % (11.5-14.5); WHITE BLOOD COUNT 15.3 X10'3 (4.5-11.0)
[2017-08-20 05:53] LABS: ALANINE AMINOTRANSFERASE 93 U/L (12-78); ALBUMIN 2.8 G/DL (3.4-5.0); ALBUMIN/GLOBULIN RATIO 0.7 (1.1-1.5); ALKALINE PHOSPHATASE 89 IU/L (46-116); ANION GAP 12 (8-16); ASPARTATE AMINO TRANSFERASE 57 U/L (10-37); BILIRUBIN,TOTAL 0.3 MG/DL (0.1-1.0); BLOOD UREA NITROGEN 33 MG/DL (7-18); BUN/CREATININE RATIO 28.2 (5.4-32.0); CALCIUM 8.4 MG/DL (8.5-10.1); CHLORIDE 107 MMOL/L (99-107); CREATININE 1.17 MG/DL (0.60-1.10); GLUCOSE 144 MG/DL (70-104); POTASSIUM 3.6 MMOL/L (3.5-5.1); SODIUM 143 MMOL/L (135-145); TOTAL PROTEIN 6.9 G/DL (6.4-8.2); eGFR 59 ML/MIN
[2017-08-20 06:00] VITALS: BP 138/69
[2017-08-20] MEDS: K and/or MAG REPLACEMENT MC SCH (08:00)
[2017-08-20] MEDS: oxybutynin 5mg tablet PO SCH (08:58)
[2017-08-20] MEDS: famotidine 20mg tablet PO SCH (08:58)
[2017-08-20] MEDS: apixaban 5mg tablet PO SCH (08:58)
[2017-08-20] MEDS: sertraline 50mg tablet PO SCH (08:59)
[2017-08-20] MEDS: ferrous sulfate 325mg tablet PO SCH (08:59)
[2017-08-20] MEDS: lisinopril 10 MG tablet PO SCH (08:59)
[2017-08-20] MEDS: sucralfate 1 gm tablet PO SCH (09:03)
[2017-08-20] MEDS: OMEGA-3/DHA/EPA/FISH OIL 1 EACH CAPSULE.DR PO SCH (09:03)
[2017-08-20 10:00] VITALS: BP 173/82
[2017-08-20 14:30] VITALS: BP 145/70
== END 2017-08-20 15:30 | DRG 682 ==
LOC: ER 11:22 → ED HOLD 15:03 → ORTHO 4S 16:03
PROVIDERS: ADMIT Family Medicine; ATTEND Internal Medicine
DX: N17.9 Acute kidney failure, unspecified (principal); G93.40 Encephalopathy, unspecified; J44.1 Chronic obstructive pulmonary disease with (acute) exacerbation; I69.351 Hemiplegia and hemiparesis following cerebral infarction affecting right dominant side; E78.00 Pure hypercholesterolemia, unspecified; E78.5 Hyperlipidemia, unspecified; E86.0 Dehydration; F01.50 Vascular dementia, unspecified severity, without behavioral disturbance, psychotic disturbance, mood disturbance, and anxiety; G93.89 Other specified disorders of brain; F32.9 Major depressive disorder, single episode, unspecified; F41.9 Anxiety disorder, unspecified; I73.9 Peripheral vascular disease, unspecified; I25.10 Atherosclerotic heart disease of native coronary artery without angina pectoris; I48.91 Unspecified atrial fibrillation; N18.9 Chronic kidney disease, unspecified; I12.9 Hypertensive chronic kidney disease with stage 1 through stage 4 chronic kidney disease, or unspecified chronic kidney disease; R29.6 Repeated falls; G89.29 Other chronic pain; M19.90 Unspecified osteoarthritis, unspecified site; T50.2X5A Adverse effect of carbonic-anhydrase inhibitors, benzothiadiazides and other diuretics, initial encounter; Z79.899 Other long term (current) drug therapy; Z79.01 Long term (current) use of anticoagulants; Z87.11 Personal history of peptic ulcer disease; Z85.46 Personal history of malignant neoplasm of prostate; Z87.891 Personal history of nicotine dependence; Z80.9 Family history of malignant neoplasm, unspecified; Y92.89 Other specified places as the place of occurrence of the external cause
CPT/HCPCS: 36415; 70450; 70544; 70551; 71045; 80053; 80061; 83605; 83735; 85025; 87040; 87070; 92616; 93308; 94760; 97116; 97162; 97530; 99285; A6257; J2930; J7030

== ENCOUNTER 2017-12-18 12:13 | Inpatient (IN) | payer MEDICARE, MEDICAID ==
[~2017-12-18] VITALS: Ht 175.3 cm; Wt 79.5 kg
[~2017-12-18 12:13] MED LIST changes: +HYDR-4353 PO; -HYDR-565 PO
[2017-12-18 12:56] LABS: BASOPHILS % (AUTO) 0.1 % (0-1); EOSINOPHILS % (AUTO) 0.3 % (0-6); HEMATOCRIT 36.8 % (42.0-52.0); HEMOGLOBIN 12.4 g/dl (14.0-17.9); LYMPHOCYTES # (AUTO) 0.8 X10'3 (1.1-4.8); LYMPHOCYTES % (AUTO) 6.3 % (21-51); MEAN CORPUSCULAR HEMOGLOBIN 31.7 PG (27.0-31.0); MEAN CORPUSCULAR HGB CONC 33.6 % (33.0-36.5); MEAN CORPUSCULAR VOLUME 94.3 FL (78-98); MEAN PLATELET VOLUME 7.8 FL (7.4-10.4); MONOCYTES # (AUTO) 0.8 X10'3 (0-0.9); MONOCYTES % (AUTO) 6.3 % (2-12); PLATELET COUNT 209 X10'3 (140-440); RED BLOOD COUNT 3.91 X10'6 (4.70-6.10); WHITE BLOOD COUNT 12.6 X10'3 (4.5-11.0)
[2017-12-18] MEDS ORDERED: normal saline 1000ML IV soln IVB ONE (13:00)
[2017-12-18 13:40] LABS: ALANINE AMINOTRANSFERASE 34 U/L (12-78); ALBUMIN 3.2 G/DL (3.4-5.0); ALBUMIN/GLOBULIN RATIO 0.8 (1.1-1.5); ALKALINE PHOSPHATASE 108 IU/L (46-116); ANION GAP 12 (8-16); ASPARTATE AMINO TRANSFERASE 21 U/L (10-37); BILIRUBIN,TOTAL 0.7 MG/DL (0.1-1.0); BLOOD UREA NITROGEN 31 MG/DL (7-18); BUN/CREATININE RATIO 18.1 (5.4-32.0); CALCIUM 8.8 MG/DL (8.5-10.1); CHLORIDE 106 MMOL/L (99-107); CREATININE 1.71 MG/DL (0.60-1.10); GLUCOSE 125 MG/DL (70-104); POTASSIUM 4.5 MMOL/L (3.5-5.1); SODIUM 141 MMOL/L (135-145); TOTAL CARBON DIOXIDE 22.9 MMOL/L (24-32); eGFR 38 ML/MIN
[2017-12-18 14:23] LABS: CLARITY,URINE CLEAR (Clear); COLOR,URINE YELLOW (Yellow); GLUCOSE, URINE NEGATIVE (Neg); KETONES,URINE NEGATIVE (Neg); LEUKOCYTE ESTERASE ,URINE NEGATIVE (Neg); NITRITES, URINE NEGATIVE (Neg); OCCULT BLOOD,URINE NEGATIVE (Neg); PROTEIN,URINE NEGATIVE (Neg); UROBILINOGEN,URINE 0.2 E.U/dL (0.2-1.0)
[2017-12-18 14:34] LABS: UA COLLECTION TYPE STRAIGHT CATH
[2017-12-18] MEDS ORDERED: CefTRIAXone 2gm/D5W 50ml 50 ML IV ONE (15:30)
[2017-12-18] MEDS ORDERED: potassium Cl 40MEQ/NS 500ml 500 ML IV PRN ×2 (15:50)
[2017-12-18] MEDS ORDERED: potassium Cl 20 mEq SR tablet PO PRN (15:50)
[2017-12-18] MEDS ORDERED: ondansetron/PF 4mg/2ml inj IV PRN (15:50)
[2017-12-18] MEDS ORDERED: magnesium 1gm/100ml D5W IVPB 100 ML IV PRN (15:50)
[2017-12-18] MEDS ORDERED: magnesium Cl slow-release 64mg tablet PO PRN (15:50)
[2017-12-18] MEDS ORDERED: acetaminophen 325mg tablet PO PRN (15:50)
[2017-12-18] MEDS ORDERED: morphine 2 MG/ML inj. syringe IV PRN (15:50)
[2017-12-18] MEDS ORDERED: magnesium 4gm in 100ml NS 100 ML IV PRN (15:50)
[2017-12-18 17:50] VITALS: BP 148/55
[2017-12-18] MEDS: normal saline 1000ml 1,000 ML IV SCH (18:49)
[2017-12-18] MEDS: ferrous sulfate 325mg tablet PO SCH (20:38)
[2017-12-18] MEDS: apixaban 5mg tablet PO SCH (20:38)
[2017-12-18] MEDS: HYDROcodone/acetaminophen 5mg/325mg tablet PO PRN (20:39)
[2017-12-18] MEDS: famotidine 20mg tablet PO SCH (20:39)
[2017-12-18] MEDS: diltiazem CD 180mg cap (once-daily) PO SCH (20:39)
[2017-12-18] MEDS: fludrocortisone acetate 0.1mg tablet PO SCH (20:40)
[2017-12-18 22:00] VITALS: BP 138/54
[2017-12-19] MEDS: HYDROcodone/acetaminophen 5mg/325mg tablet PO PRN ×2 (02:15→12:06)
[2017-12-19] MEDS: normal saline 1000ml 1,000 ML IV SCH ×2 (05:47→19:06)
[2017-12-19 06:00] VITALS: BP 124/58
[2017-12-19 07:01] LABS: ALBUMIN 2.7 G/DL (3.4-5.0); ANION GAP 9 (8-16); BLOOD UREA NITROGEN 22 MG/DL (7-18); BUN/CREATININE RATIO 16.8 (5.4-32.0); CALCIUM 8.5 MG/DL (8.5-10.1); CHLORIDE 109 MMOL/L (99-107); CREATININE 1.31 MG/DL (0.60-1.10); GLUCOSE 98 MG/DL (70-104); POTASSIUM 3.9 MMOL/L (3.5-5.1); SODIUM 143 MMOL/L (135-145); TOTAL CARBON DIOXIDE 25.1 MMOL/L (24-32); eGFR 52 ML/MIN
[2017-12-19 07:02] LABS: BASOPHILS % (AUTO) 0.6 % (0-1); EOSINOPHILS # (AUTO) 0.2 X10'3 (0-0.9); EOSINOPHILS % (AUTO) 2.6 % (0-6); HEMATOCRIT 33.1 % (42.0-52.0); HEMOGLOBIN 10.8 g/dl (14.0-17.9); LYMPHOCYTES # (AUTO) 1.3 X10'3 (1.1-4.8); LYMPHOCYTES % (AUTO) 18.5 % (21-51); MEAN CORPUSCULAR HEMOGLOBIN 31.1 PG (27.0-31.0); MEAN CORPUSCULAR HGB CONC 32.7 % (33.0-36.5); MEAN CORPUSCULAR VOLUME 95.2 FL (78-98); MEAN PLATELET VOLUME 7.7 FL (7.4-10.4); MONOCYTES # (AUTO) 0.9 X10'3 (0-0.9); NEUTROPHILS # (AUTO) 4.4 X10'3 (1.8-7.7); NEUTROPHILS % (AUTO) 65.3 % (42-75); PLATELET COUNT 156 X10'3 (140-440); RED BLOOD COUNT 3.48 X10'6 (4.70-6.10); RED CELL DISTRIBUTION WIDTH 13.8 % (11.5-14.5); WHITE BLOOD COUNT 6.8 X10'3 (4.5-11.0)
[2017-12-19 08:00] VITALS: BP_SYST 136; BP_SYST 172; BP_SYST 183; BP_DIAS 74; BP_DIAS 76; BP_DIAS 81
[2017-12-19] MEDS: K and/or MAG REPLACEMENT MC SCH (08:00)
[2017-12-19] MEDS: ferrous sulfate 325mg tablet PO SCH ×2 (08:10→20:40)
[2017-12-19] MEDS: atorvastatin 10mg tablet PO SCH (08:10)
[2017-12-19] MEDS: famotidine 20mg tablet PO SCH ×2 (08:10→20:40)
[2017-12-19] MEDS: apixaban 5mg tablet PO SCH ×2 (08:10→20:40)
[2017-12-19] MEDS: lisinopril 5mg tablet PO SCH (08:11)
[2017-12-19] MEDS: CefTRIAXone 2gm/D5W 50ml 50 ML IV SCH (08:11)
[2017-12-19] MEDS: sertraline 50mg tablet PO SCH (08:11)
[2017-12-19 10:00] VITALS: BP 146/62
[2017-12-19] MEDS: azithromycin/NS 500mg/250ml 250 ML IV SCH (13:16)
[2017-12-19] MEDS: docusate sod 100mg capsule PO PRN (13:39)
[2017-12-19 18:00] VITALS: BP 139/60
[2017-12-19] MEDS: fludrocortisone acetate 0.1mg tablet PO SCH (20:40)
[2017-12-19] MEDS: diltiazem CD 180mg cap (once-daily) PO SCH (20:40)
[2017-12-19 20:59] VITALS: BP_SYST 156; BP_SYST 163; BP_DIAS 54; BP_DIAS 64
[2017-12-19 22:00] VITALS: BP 156/54
[2017-12-20] MEDS: docusate sod 100mg capsule PO PRN (03:39)
[2017-12-20] MEDS: HYDROcodone/acetaminophen 5mg/325mg tablet PO PRN ×3 (03:39→17:51)
[2017-12-20] MEDS: normal saline 1000ml 1,000 ML IV SCH ×2 (05:38→22:24)
[2017-12-20 06:00] VITALS: BP 134/70
[2017-12-20 07:02] LABS: BASOPHILS % (AUTO) 0.4 % (0-1); EOSINOPHILS # (AUTO) 0.2 X10'3 (0-0.9); EOSINOPHILS % (AUTO) 2.4 % (0-6); HEMATOCRIT 34.6 % (42.0-52.0); HEMOGLOBIN 11.4 g/dl (14.0-17.9); LYMPHOCYTES # (AUTO) 1.2 X10'3 (1.1-4.8); MEAN CORPUSCULAR HEMOGLOBIN 31.3 PG (27.0-31.0); MEAN CORPUSCULAR VOLUME 95.1 FL (78-98); MONOCYTES # (AUTO) 0.8 X10'3 (0-0.9); MONOCYTES % (AUTO) 11.1 % (2-12); NEUTROPHILS # (AUTO) 5.1 X10'3 (1.8-7.7); NEUTROPHILS % (AUTO) 69.1 % (42-75); PLATELET COUNT 178 X10'3 (140-440); RED BLOOD COUNT 3.64 X10'6 (4.70-6.10); RED CELL DISTRIBUTION WIDTH 13.8 % (11.5-14.5); WHITE BLOOD COUNT 7.4 X10'3 (4.5-11.0)
[2017-12-20] MEDS: apixaban 5mg tablet PO SCH ×2 (07:15→19:40)
[2017-12-20] MEDS: atorvastatin 10mg tablet PO SCH (07:16)
[2017-12-20] MEDS: ferrous sulfate 325mg tablet PO SCH ×2 (07:16→19:40)
[2017-12-20] MEDS: famotidine 20mg tablet PO SCH ×2 (07:16→19:40)
[2017-12-20] MEDS: lisinopril 5mg tablet PO SCH (07:16)
[2017-12-20] MEDS: sertraline 50mg tablet PO SCH (07:17)
[2017-12-20] MEDS: azithromycin/NS 500mg/250ml 250 ML IV SCH (07:18)
[2017-12-20 07:23] LABS: ALBUMIN 2.6 G/DL (3.4-5.0); ANION GAP 9 (8-16); BLOOD UREA NITROGEN 17 MG/DL (7-18); CALCIUM 8.3 MG/DL (8.5-10.1); CHLORIDE 109 MMOL/L (99-107); CREATININE 1.13 MG/DL (0.60-1.10); GLUCOSE 125 MG/DL (70-104); MAGNESIUM 1.8 MG/DL (1.5-2.4); POTASSIUM 3.4 MMOL/L (3.5-5.1); SODIUM 143 MMOL/L (135-145); TOTAL CARBON DIOXIDE 25.1 MMOL/L (24-32); eGFR 62 ML/MIN
[2017-12-20] MEDS: K and/or MAG REPLACEMENT MC SCH (08:00)
[2017-12-20] MEDS: CefTRIAXone 2gm/D5W 50ml 50 ML IV SCH (08:31)
[2017-12-20] MEDS: potassium Cl 20 mEq SR tablet PO PRN ×3 (08:31→19:40)
[2017-12-20 10:00] VITALS: BP 139/61
[2017-12-20] MEDS ORDERED: bisacodyl 10mg suppository rectal RC PRN (10:00)
[2017-12-20] MEDS ORDERED: magnesium hydroxide 30ml (MOM) UD suspension PO PRN (10:00)
[2017-12-20 18:00] VITALS: BP 144/58
[2017-12-20] MEDS: diltiazem CD 180mg cap (once-daily) PO SCH (20:54)
[2017-12-20] MEDS: fludrocortisone acetate 0.1mg tablet PO SCH (20:54)
[2017-12-21 06:00] VITALS: BP 168/71
[2017-12-21 07:18] LABS: BASOPHILS % (AUTO) 0.2 % (0-1); EOSINOPHILS # (AUTO) 0.3 X10'3 (0-0.9); EOSINOPHILS % (AUTO) 3.4 % (0-6); HEMATOCRIT 36.4 % (42.0-52.0); HEMOGLOBIN 12.1 g/dl (14.0-17.9); LYMPHOCYTES % (AUTO) 10.1 % (21-51); MEAN CORPUSCULAR HEMOGLOBIN 31.5 PG (27.0-31.0); MEAN CORPUSCULAR HGB CONC 33.2 % (33.0-36.5); MEAN PLATELET VOLUME 8.1 FL (7.4-10.4); MONOCYTES # (AUTO) 0.8 X10'3 (0-0.9); NEUTROPHILS # (AUTO) 7.5 X10'3 (1.8-7.7); NEUTROPHILS % (AUTO) 78.3 % (42-75); PLATELET COUNT 202 X10'3 (140-440); RED BLOOD COUNT 3.83 X10'6 (4.70-6.10); RED CELL DISTRIBUTION WIDTH 13.8 % (11.5-14.5); WHITE BLOOD COUNT 9.6 X10'3 (4.5-11.0)
[2017-12-21 07:28] LABS: ALBUMIN 2.8 G/DL (3.4-5.0); ANION GAP 10 (8-16); BLOOD UREA NITROGEN 15 MG/DL (7-18); BUN/CREATININE RATIO 14.9 (5.4-32.0); CALCIUM 8.7 MG/DL (8.5-10.1); CHLORIDE 107 MMOL/L (99-107); CREATININE 1.01 MG/DL (0.60-1.10); GLUCOSE 124 MG/DL (70-104); MAGNESIUM 1.8 MG/DL (1.5-2.4); POTASSIUM 3.7 MMOL/L (3.5-5.1); SODIUM 141 MMOL/L (135-145); TOTAL CARBON DIOXIDE 24.1 MMOL/L (24-32); eGFR 70 ML/MIN
[2017-12-21] MEDS: apixaban 5mg tablet PO SCH ×2 (07:32→21:33)
[2017-12-21] MEDS: CefTRIAXone 2gm/D5W 50ml 50 ML IV SCH (07:33)
[2017-12-21] MEDS: azithromycin 250mg tablet PO SCH (07:33)
[2017-12-21] MEDS: atorvastatin 10mg tablet PO SCH (07:33)
[2017-12-21] MEDS: famotidine 20mg tablet PO SCH ×2 (07:33→21:33)
[2017-12-21] MEDS: lisinopril 5mg tablet PO SCH (07:33)
[2017-12-21] MEDS: ferrous sulfate 325mg tablet PO SCH ×2 (07:33→21:33)
[2017-12-21] MEDS: sertraline 50mg tablet PO SCH (07:33)
[2017-12-21] MEDS: K and/or MAG REPLACEMENT MC SCH (07:38)
[2017-12-21 08:00] VITALS: BP_SYST 179; BP_SYST 181; BP_SYST 191; BP_DIAS 75; BP_DIAS 84; BP_DIAS 88
[2017-12-21 10:00] VITALS: BP 139/54
[2017-12-21] MEDS: normal saline 1000ml 1,000 ML IV SCH ×2 (10:33→16:58)
[2017-12-21 17:30] VITALS: BP 181/77
[2017-12-21] MEDS ORDERED: hydrALAZINE 20mg/ml inj. IV PRN (17:40)
[2017-12-21] MEDS: hydrALAZINE 20mg/ml inj. IV PRN (17:51)
[2017-12-21 20:00] VITALS: BP_SYST 167; BP_SYST 173; BP_DIAS 71; BP_DIAS 86
[2017-12-21] MEDS: lactobacillus rhamnosus 10,000 MMU CELLS/CAPSULE PO SCH (21:33)
[2017-12-21] MEDS: diltiazem CD 180mg cap (once-daily) PO SCH (21:33)
[2017-12-21] MEDS: fludrocortisone acetate 0.1mg tablet PO SCH (21:34)
[2017-12-21] MEDS: HYDROcodone/acetaminophen 5mg/325mg tablet PO PRN (21:35)
[2017-12-21 22:00] VITALS: BP 180/74
[2017-12-22] VITALS: BP 178/78
[2017-12-22] MEDS: hydrALAZINE 20mg/ml inj. IV PRN (00:07)
[2017-12-22 01:00] VITALS: BP 151/67
[2017-12-22 06:54] VITALS: BP 160/72
[2017-12-22 07:29] LABS: BASOPHILS % (AUTO) 0.4 % (0-1); EOSINOPHILS # (AUTO) 0.3 X10'3 (0-0.9); EOSINOPHILS % (AUTO) 3.6 % (0-6); HEMATOCRIT 37.9 % (42.0-52.0); HEMOGLOBIN 12.5 g/dl (14.0-17.9); LYMPHOCYTES # (AUTO) 1.2 X10'3 (1.1-4.8); LYMPHOCYTES % (AUTO) 16.3 % (21-51); MEAN CORPUSCULAR HEMOGLOBIN 31.4 PG (27.0-31.0); MEAN CORPUSCULAR HGB CONC 33.1 % (33.0-36.5); MEAN CORPUSCULAR VOLUME 94.9 FL (78-98); MEAN PLATELET VOLUME 7.5 FL (7.4-10.4); MONOCYTES # (AUTO) 0.7 X10'3 (0-0.9); MONOCYTES % (AUTO) 9.6 % (2-12); NEUTROPHILS # (AUTO) 5.1 X10'3 (1.8-7.7); NEUTROPHILS % (AUTO) 70.1 % (42-75); PLATELET COUNT 228 X10'3 (140-440); RED CELL DISTRIBUTION WIDTH 14.1 % (11.5-14.5); WHITE BLOOD COUNT 7.2 X10'3 (4.5-11.0)
[2017-12-22 07:36] LABS: ALBUMIN 2.7 G/DL (3.4-5.0); ANION GAP 11 (8-16); BLOOD UREA NITROGEN 15 MG/DL (7-18); BUN/CREATININE RATIO 13.8 (5.4-32.0); CALCIUM 8.8 MG/DL (8.5-10.1); CHLORIDE 109 MMOL/L (99-107); CREATININE 1.09 MG/DL (0.60-1.10); GLUCOSE 116 MG/DL (70-104); MAGNESIUM 1.9 MG/DL (1.5-2.4); POTASSIUM 3.5 MMOL/L (3.5-5.1); SODIUM 144 MMOL/L (135-145); TOTAL CARBON DIOXIDE 24.1 MMOL/L (24-32); eGFR 64 ML/MIN
[2017-12-22] MEDS: ferrous sulfate 325mg tablet PO SCH (07:44)
[2017-12-22] MEDS: sertraline 50mg tablet PO SCH (07:44)
[2017-12-22] MEDS: lisinopril 5mg tablet PO SCH (07:44)
[2017-12-22] MEDS: lactobacillus rhamnosus 10,000 MMU CELLS/CAPSULE PO SCH (07:44)
[2017-12-22] MEDS: famotidine 20mg tablet PO SCH (07:44)
[2017-12-22] MEDS: atorvastatin 10mg tablet PO SCH (07:44)
[2017-12-22] MEDS: azithromycin 250mg tablet PO SCH (07:44)
[2017-12-22] MEDS: CefTRIAXone 2gm/D5W 50ml 50 ML IV SCH (07:44)
[2017-12-22] MEDS: apixaban 5mg tablet PO SCH (07:44)
[2017-12-22] MEDS: K and/or MAG REPLACEMENT MC SCH (07:45)
[2017-12-22 11:55] VITALS: BP 159/56
[2017-12-22] MEDS ORDERED: CEFD300C3 PO (11:59)
[2017-12-24 10:28] LABS: OCCULT BLOOD STOOL NEGATIVE (Neg)
== END 2017-12-22 13:30 | disposition home or self-care (01) | DRG 193 ==
LOC: ER 12:13 → ED HOLD 15:49 → ORTHO 4S 18:01
PROVIDERS: ADMIT Internal Medicine; ATTEND Family Medicine
DX: J18.1 Lobar pneumonia, unspecified organism (principal); G93.41 Metabolic encephalopathy; I12.9 Hypertensive chronic kidney disease with stage 1 through stage 4 chronic kidney disease, or unspecified chronic kidney disease; N18.3 Chronic kidney disease, stage 3 (moderate); E78.00 Pure hypercholesterolemia, unspecified; E78.5 Hyperlipidemia, unspecified; E86.0 Dehydration; I25.10 Atherosclerotic heart disease of native coronary artery without angina pectoris; S30.1XXA Contusion of abdominal wall, initial encounter; F32.9 Major depressive disorder, single episode, unspecified; F41.9 Anxiety disorder, unspecified; G89.29 Other chronic pain; M19.90 Unspecified osteoarthritis, unspecified site; W18.39XA Other fall on same level, initial encounter; M25.551 Pain in right hip; I48.91 Unspecified atrial fibrillation; E87.6 Hypokalemia; I69.311 Memory deficit following cerebral infarction; Z79.899 Other long term (current) drug therapy; Z79.01 Long term (current) use of anticoagulants; Z80.9 Family history of malignant neoplasm, unspecified; Y93.89 Activity, other specified; Y99.8 Other external cause status; Y92.091 Bathroom in other non-institutional residence as the place of occurrence of the external cause
CPT/HCPCS: 36415; 71045; 73502; 80048; 80053; 81003; 82272; 83605; 83735; 85025; 87040; 87070; 93005; 96360; 97110; 97116; 97161; 97530; 99285; G0378; J0360; J0456; J0696; J7030

== ENCOUNTER 2018-04-16 10:55 | Emergency (ER) | payer MEDICARE, MEDICAID ==
[~2018-04-16] VITALS: Ht 172.7 cm; Wt 107.0 kg
[~2018-04-16 10:55] MED LIST changes: -FURO-150 PO; -POTA25TA11 PO
[2018-04-16 11:29] LABS: BASOPHILS # (AUTO) 0.1 X10'3 (0-0.2); EOSINOPHILS # (AUTO) 0.3 X10'3 (0-0.9); EOSINOPHILS % (AUTO) 4.7 % (0-6); HEMATOCRIT 38.6 % (42.0-52.0); HEMOGLOBIN 12.9 g/dl (14.0-17.9); LYMPHOCYTES # (AUTO) 1.5 X10'3 (1.1-4.8); LYMPHOCYTES % (AUTO) 24.2 % (21-51); MEAN CORPUSCULAR HEMOGLOBIN 31.8 PG (27.0-31.0); MEAN CORPUSCULAR HGB CONC 33.5 g/dL (33.0-36.5); MEAN CORPUSCULAR VOLUME 94.8 FL (78-98); MEAN PLATELET VOLUME 7.6 FL (7.4-10.4); MONOCYTES # (AUTO) 0.8 X10'3 (0-0.9); MONOCYTES % (AUTO) 13.6 % (2-12); NEUTROPHILS # (AUTO) 3.5 X10'3 (1.8-7.7); NEUTROPHILS % (AUTO) 56.5 % (42-75); PLATELET COUNT 169 X10'3 (140-440); RED BLOOD COUNT 4.08 X10'6 (4.70-6.10); RED CELL DISTRIBUTION WIDTH 13.6 % (11.5-14.5); WHITE BLOOD COUNT 6.2 X10'3 (4.5-11.0)
[2018-04-16 11:51] LABS: ALANINE AMINOTRANSFERASE 23 U/L (12-78); ALBUMIN 3.5 G/DL (3.4-5.0); ALKALINE PHOSPHATASE 107 IU/L (46-116); ANION GAP 9 (8-16); ASPARTATE AMINO TRANSFERASE 18 U/L (10-37); BILIRUBIN,TOTAL 0.3 MG/DL (0.1-1.0); BLOOD UREA NITROGEN 26 MG/DL (7-18); BUN/CREATININE RATIO 17.8 (5.4-32.0); CALCIUM 9.1 MG/DL (8.5-10.1); CHLORIDE 106 MMOL/L (99-107); CREATININE 1.46 MG/DL (0.60-1.10); GLUCOSE 130 MG/DL (70-104); POTASSIUM 4.2 MMOL/L (3.5-5.1); SODIUM 142 MMOL/L (135-145); TOTAL CARBON DIOXIDE 27.2 MMOL/L (24-32); eGFR 46 ML/MIN
[2018-04-16 11:55] LABS: MAGNESIUM 2.2 MG/DL (1.5-2.4)
--- NOTE | 2018-04-16 12:04 | NUR ---
PATIENT BACK FROM CT AND BACK ON MONITOR. NO DISTRESS.
--- NOTE | 2018-04-16 12:32 | NUR ---
TECH ATTEMPTED TO COLLECT UA ON PT - PT STATES HE IS UNABLE TO VOID AT THIS TIME.
[2018-04-16] MEDS ORDERED: CYCL1DRO EACHEYE (12:47)
[2018-04-16] MEDS ORDERED: MULT-933 PO (12:47)
[2018-04-16 13:44] LABS: CLARITY,URINE CLEAR (Clear); COLOR,URINE YELLOW (Yellow); GLUCOSE, URINE NEGATIVE (Neg); KETONES,URINE TRACE mg/dl (Neg); LEUKOCYTE ESTERASE ,URINE NEGATIVE (Neg); NITRITES, URINE NEGATIVE (Neg); OCCULT BLOOD,URINE TRACE-INTACT (Neg); PH,URINE 5.5 (4.8-8.0); PROTEIN,URINE NEGATIVE (Neg); UROBILINOGEN,URINE 0.2 E.U/dL (0.2-1.0)
[2018-04-16 13:45] LABS: UA COLLECTION TYPE VOIDED
[2018-04-16 13:54] LABS: AMORPHOUS URATES 1+; BACTERIA,URINE FEW /HPF (Neg); MUCUS STRANDS MODERATE /LPF (Neg); SQUAMOUS EPITHELIAL CELL,UR FEW /LPF (FEW); WBC,URINE 0-4 /HPF (0-4)
[2018-04-16 13:56] LABS: STARCH,URINE FEW /HPF (NEGATIVE)
[2018-04-16 14:55] VITALS: BP 141/46
== END 2018-04-16 15:10 | disposition home or self-care (01) ==
LOC: ER 10:55
DX: R55 Syncope and collapse (principal); F03.90 Unspecified dementia, unspecified severity, without behavioral disturbance, psychotic disturbance, mood disturbance, and anxiety; R41.82 Altered mental status, unspecified; I10 Essential (primary) hypertension; E78.00 Pure hypercholesterolemia, unspecified; G89.29 Other chronic pain; F41.9 Anxiety disorder, unspecified; F32.9 Major depressive disorder, single episode, unspecified; Z86.73 Personal history of transient ischemic attack (TIA), and cerebral infarction without residual deficits; Z79.899 Other long term (current) drug therapy
CPT/HCPCS: 36415; 70450; 71045; 80053; 81001; 83735; 83880; 84484; 85025; 93005; 99284

== ENCOUNTER 2018-06-20 21:24 | Emergency (ER) | payer MEDICARE, MEDICAID ==
[~2018-06-20] VITALS: Ht 172.7 cm; Wt 90.0 kg
[~2018-06-20 21:24] MED LIST changes: +CYCL1DRO EACHEYE; +MULT-933 PO
[2018-06-20 22:27] LABS: BASOPHILS # (AUTO) 0.1 X10'3 (0-0.2); BASOPHILS % (AUTO) 1.2 % (0-1); EOSINOPHILS # (AUTO) 0.2 X10'3 (0-0.9); EOSINOPHILS % (AUTO) 2.7 % (0-6); HEMATOCRIT 39.8 % (42.0-52.0); HEMOGLOBIN 13.4 g/dl (14.0-17.9); LYMPHOCYTES # (AUTO) 1.4 X10'3 (1.1-4.8); LYMPHOCYTES % (AUTO) 20.1 % (21-51); MEAN CORPUSCULAR HEMOGLOBIN 32.5 PG (27.0-31.0); MEAN CORPUSCULAR HGB CONC 33.6 g/dL (33.0-36.5); MEAN CORPUSCULAR VOLUME 96.7 FL (78-98); MEAN PLATELET VOLUME 7.6 FL (7.4-10.4); MONOCYTES # (AUTO) 0.9 X10'3 (0-0.9); MONOCYTES % (AUTO) 13.1 % (2-12); NEUTROPHILS # (AUTO) 4.5 X10'3 (1.8-7.7); NEUTROPHILS % (AUTO) 62.9 % (42-75); PLATELET COUNT 170 X10'3 (140-440); RED BLOOD COUNT 4.11 X10'6 (4.70-6.10); RED CELL DISTRIBUTION WIDTH 14.3 % (11.5-14.5); WHITE BLOOD COUNT 7.1 X10'3 (4.5-11.0)
[2018-06-20 22:37] LABS: ALANINE AMINOTRANSFERASE 32 U/L (12-78); ALBUMIN 3.5 G/DL (3.4-5.0); ALKALINE PHOSPHATASE 113 IU/L (46-116); ANION GAP 9 (8-16); ASPARTATE AMINO TRANSFERASE 16 U/L (10-37); BILIRUBIN,TOTAL 0.2 MG/DL (0.1-1.0); BLOOD UREA NITROGEN 28 MG/DL (7-18); BUN/CREATININE RATIO 20.4 (5.4-32.0); CHLORIDE 106 MMOL/L (99-107); CREATININE 1.37 MG/DL (0.60-1.10); GLUCOSE 143 MG/DL (70-104); POTASSIUM 4.2 MMOL/L (3.5-5.1); SODIUM 140 MMOL/L (135-145); TOTAL PROTEIN 6.9 G/DL (6.4-8.2); eGFR 49 ML/MIN
[2018-06-20 22:39] LABS: INR 1.1 INR; PARTIAL THROMBOPLASTIN TIME 29 SECONDS (22-32)
[2018-06-20 23:04] LABS: CLARITY,URINE CLEAR (Clear); COLOR,URINE YELLOW (Yellow); GLUCOSE, URINE NEGATIVE (Neg); KETONES,URINE NEGATIVE (Neg); LEUKOCYTE ESTERASE ,URINE NEGATIVE (Neg); NITRITES, URINE NEGATIVE (Neg); OCCULT BLOOD,URINE MODERATE (Neg); PH,URINE 5.5 (4.8-8.0); PROTEIN,URINE NEGATIVE (Neg); UROBILINOGEN,URINE 0.2 E.U/dL (0.2-1.0)
[2018-06-20 23:06] LABS: OCCULT BLOOD STOOL POSITIVE (Neg)
[2018-06-20 23:09] LABS: UA COLLECTION TYPE CLN CATCH MIDSTREAM
[2018-06-20 23:10] LABS: BACTERIA,URINE NONE SEEN /HPF (Neg); RBC,URINE 0-2 /HPF (0-2); SQUAMOUS EPITHELIAL CELL,UR FEW /LPF (FEW); WBC,URINE NONE SEEN /HPF (0-4)
[2018-06-20 23:40] VITALS: BP 159/70
== END 2018-06-20 23:42 | disposition home or self-care (01) ==
LOC: ER 21:25
DX: K64.4 Residual hemorrhoidal skin tags (principal); K92.1 Melena; I25.10 Atherosclerotic heart disease of native coronary artery without angina pectoris; E78.00 Pure hypercholesterolemia, unspecified; I10 Essential (primary) hypertension; M19.90 Unspecified osteoarthritis, unspecified site; G89.29 Other chronic pain; Z86.73 Personal history of transient ischemic attack (TIA), and cerebral infarction without residual deficits; Z98.890 Other specified postprocedural states; Z95.5 Presence of coronary angioplasty implant and graft; Z79.899 Other long term (current) drug therapy
CPT/HCPCS: 36415; 71045; 80053; 81001; 82272; 85025; 85610; 85730; 93005; 99284

== ENCOUNTER 2019-10-10 07:01 | Emergency (ER) | payer MEDICARE, MEDICAID ==
[~2019-10-10] VITALS: Ht 175.3 cm; Wt 78.7 kg
[~2019-10-10 07:01] MED LIST changes: +CARB1TAB37 PO; -CYCL1DRO EACHEYE; +DONE-46 PO; -FISH1CAP15 PO; -HYDR-4353 PO; +PRIM50TA3 PO; -SUCR1TAB34 PO
[2019-10-10] MEDS ORDERED: normal saline 1000ml 1,000 ML IV ONE (07:22)
[2019-10-10 07:37] LABS: BASOPHILS # (AUTO) 0.1 X10'3 (0-0.2); BASOPHILS % (AUTO) 0.8 % (0-1); EOSINOPHILS # (AUTO) 0.3 X10'3 (0-0.9); EOSINOPHILS % (AUTO) 3.9 % (0-6); HEMATOCRIT 40.9 % (42.0-52.0); HEMOGLOBIN 13.7 g/dl (14.0-17.9); LYMPHOCYTES # (AUTO) 1.8 X10'3 (1.1-4.8); MEAN CORPUSCULAR HEMOGLOBIN 32.7 PG (27.0-31.0); MEAN CORPUSCULAR HGB CONC 33.5 g/dL (33.0-36.5); MEAN CORPUSCULAR VOLUME 97.7 FL (78-98); MEAN PLATELET VOLUME 7.9 FL (7.4-10.4); MONOCYTES # (AUTO) 0.9 X10'3 (0-0.9); MONOCYTES % (AUTO) 12.4 % (2-12); NEUTROPHILS # (AUTO) 4.2 X10'3 (1.8-7.7); NEUTROPHILS % (AUTO) 57.9 % (42-75); PLATELET COUNT 168 X10'3 (140-440); RED BLOOD COUNT 4.19 X10'6 (4.70-6.10); RED CELL DISTRIBUTION WIDTH 13.7 % (11.5-14.5); WHITE BLOOD COUNT 7.3 X10'3 (4.5-11.0)
--- NOTE | 2019-10-10 07:40 | NUR ---
SPOKE TO SON THAIS IN PERSON ,HX OBTAINED.HX OF DEMENTIA, PER SON PT IS MORE CONFUSED AND WEAK THEN USUAL ,PT HAS HEMATURIA SINCE 24 HR.TESTED NEGATIVE FOR UTI BY [facility].FOR ANY QUES CALL SON ON [id number].
[2019-10-10 07:50] LABS: PARTIAL THROMBOPLASTIN TIME 28 SECONDS (22-32)
[2019-10-10 07:54] LABS: ALANINE AMINOTRANSFERASE 32 U/L (12-78); ALBUMIN 3.5 G/DL (3.4-5.0); ALKALINE PHOSPHATASE 123 IU/L (46-116); ANION GAP 8 (8-16); ASPARTATE AMINO TRANSFERASE 17 U/L (10-37); BILIRUBIN,TOTAL 0.3 MG/DL (0.1-1.0); BLOOD UREA NITROGEN 23 MG/DL (7-18); BUN/CREATININE RATIO 18.4 (5.4-32.0); CALCIUM 8.8 MG/DL (8.5-10.1); CHLORIDE 107 MMOL/L (99-107); CREATININE 1.25 MG/DL (0.60-1.10); GLUCOSE 122 MG/DL (70-104); LIPASE 94 U/L (73-393); SODIUM 142 MMOL/L (135-145); TOTAL PROTEIN 7.1 G/DL (6.4-8.2); eGFR 55 ML/MIN
[2019-10-10 08:05] LABS: CLARITY,URINE CLEAR (Clear); COLOR,URINE YELLOW (Yellow); GLUCOSE, URINE NEGATIVE (Neg); KETONES,URINE NEGATIVE (Neg); LEUKOCYTE ESTERASE ,URINE NEGATIVE (Neg); NITRITES, URINE NEGATIVE (Neg); OCCULT BLOOD,URINE LARGE (Neg); PH,URINE 5.5 (4.8-8.0); PROTEIN,URINE NEGATIVE (Neg); UROBILINOGEN,URINE 0.2 E.U/dL (0.2-1.0)
[2019-10-10 08:06] LABS: UA COLLECTION TYPE STRAIGHT CATH
[2019-10-10 08:10] LABS: BACTERIA,URINE NONE SEEN /HPF (Neg); RBC,URINE 50-100 /HPF (0-2); SQUAMOUS EPITHELIAL CELL,UR NONE SEEN /LPF (FEW); WBC,URINE 0-4 /HPF (0-4)
[2019-10-10] MEDS ORDERED: iohexol 300mg/ml 100ml inj. ONE (09:18)
[2019-10-10] MEDS ORDERED: ciprofloxacin 250mg tablet PO ONE (11:20)
[2019-10-10] MEDS ORDERED: CIPR250T4 PO (12:02)
[2019-10-10 12:48] VITALS: BP 169/75
== END 2019-10-10 12:49 | disposition home or self-care (01) ==
LOC: ER 07:03
DX: R31.9 Hematuria, unspecified (principal); F03.90 Unspecified dementia, unspecified severity, without behavioral disturbance, psychotic disturbance, mood disturbance, and anxiety; I25.10 Atherosclerotic heart disease of native coronary artery without angina pectoris; E78.00 Pure hypercholesterolemia, unspecified; I10 Essential (primary) hypertension; M19.90 Unspecified osteoarthritis, unspecified site; G89.29 Other chronic pain; F41.9 Anxiety disorder, unspecified; F32.9 Major depressive disorder, single episode, unspecified; Z86.73 Personal history of transient ischemic attack (TIA), and cerebral infarction without residual deficits; Z98.61 Coronary angioplasty status; Z98.890 Other specified postprocedural states; Z79.01 Long term (current) use of anticoagulants; Z79.899 Other long term (current) drug therapy
CPT/HCPCS: 36415; 74178; 80053; 81001; 83605; 83690; 84145; 85025; 85610; 85730; 87040; 96360; 96361; 99285; J7030; Q9967

== ENCOUNTER 2019-12-13 10:01 | Emergency (ER) | payer MEDICARE, MEDICAID ==
[~2019-12-13] VITALS: Ht 175.3 cm; Wt 85.0 kg
[2019-12-13] MEDS ORDERED: CefTRIAXone 2gm/D5W 50ml BAG 50 ML IV ONE (10:40)
[2019-12-13] MEDS ORDERED: normal saline 1000ML IV soln IV ONE (10:40)
[2019-12-13] MEDS ORDERED: methylPREDNISolone sod succ 125mg/2ml vial IV ONE (10:40)
[2019-12-13] MEDS ORDERED: ipratropium/albuterol 3ml nebule NEB ONE (10:40)
[2019-12-13] MEDS ORDERED: azithromycin/NS 500mg/250ml 250 ML IV ONE (10:40)
--- NOTE | 2019-12-13 10:59 | NUR ---
to ct scan
[2019-12-13 11:36] LABS: BASOPHILS % (AUTO) 0.7 % (0-1); EOSINOPHILS # (AUTO) 0.2 X10'3 (0-0.9); EOSINOPHILS % (AUTO) 2.5 % (0-6); HEMATOCRIT 37.9 % (42.0-52.0); HEMOGLOBIN 12.6 g/dl (14.0-17.9); LYMPHOCYTES # (AUTO) 1.2 X10'3 (1.1-4.8); LYMPHOCYTES % (AUTO) 19.7 % (21-51); MEAN CORPUSCULAR HEMOGLOBIN 33.3 PG (27.0-31.0); MEAN CORPUSCULAR HGB CONC 33.2 g/dL (33.0-36.5); MEAN CORPUSCULAR VOLUME 100.3 FL (78-98); MEAN PLATELET VOLUME 8.1 FL (7.4-10.4); MONOCYTES # (AUTO) 0.8 X10'3 (0-0.9); MONOCYTES % (AUTO) 12.6 % (2-12); NEUTROPHILS # (AUTO) 3.9 X10'3 (1.8-7.7); NEUTROPHILS % (AUTO) 64.5 % (42-75); PLATELET COUNT 164 X10'3 (140-440); RED BLOOD COUNT 3.78 X10'6 (4.70-6.10); RED CELL DISTRIBUTION WIDTH 13.2 % (11.5-14.5)
--- NOTE | 2019-12-13 11:42 | NUR ---
MARGARITO KIRBY [phone] CELL
[2019-12-13 11:50] LABS: ALANINE AMINOTRANSFERASE 38 U/L (12-78); ALBUMIN 3.4 G/DL (3.4-5.0); ALBUMIN/GLOBULIN RATIO 0.8 (1.1-1.5); ALKALINE PHOSPHATASE 107 IU/L (46-116); ANION GAP 9 (8-16); ASPARTATE AMINO TRANSFERASE 22 U/L (10-37); BILIRUBIN,TOTAL 0.6 MG/DL (0.1-1.0); BLOOD UREA NITROGEN 24 MG/DL (7-18); BUN/CREATININE RATIO 19.2 (5.4-32.0); CALCIUM 9.7 MG/DL (8.5-10.1); CHLORIDE 106 MMOL/L (99-107); CREATININE 1.25 MG/DL (0.60-1.10); GLUCOSE 121 MG/DL (70-104); POTASSIUM 4.1 MMOL/L (3.5-5.1); SODIUM 142 MMOL/L (135-145); TOTAL CARBON DIOXIDE 26.9 MMOL/L (24-32); TOTAL PROTEIN 7.5 G/DL (6.4-8.2); eGFR 55 ML/MIN
[2019-12-13] MEDS ORDERED: AZIT250T2 PO (12:08)
[2019-12-13] MEDS ORDERED: ALBU6.7H9 INH (12:08)
[2019-12-13] MEDS ORDERED: PRED20TA PO (12:08)
--- NOTE | 2019-12-13 12:14 | NUR ---
SON AT BEDSIDE ,PT VITALS STABLE ,PT IV ABX INFUSING PER MD ORDER AND ALSO IV FLUIDS.
[2019-12-13 13:40] VITALS: BP 159/78
== END 2019-12-13 13:30 | disposition home or self-care (01) ==
LOC: ER 10:02
DX: S05.12XA Contusion of eyeball and orbital tissues, left eye, initial encounter (principal); J44.1 Chronic obstructive pulmonary disease with (acute) exacerbation; I25.10 Atherosclerotic heart disease of native coronary artery without angina pectoris; E78.00 Pure hypercholesterolemia, unspecified; I10 Essential (primary) hypertension; M19.90 Unspecified osteoarthritis, unspecified site; G89.29 Other chronic pain; Z86.73 Personal history of transient ischemic attack (TIA), and cerebral infarction without residual deficits; Z98.890 Other specified postprocedural states; Z95.5 Presence of coronary angioplasty implant and graft; Z79.899 Other long term (current) drug therapy; W05.0XXA Fall from non-moving wheelchair, initial encounter; Y93.89 Activity, other specified; Y92.89 Other specified places as the place of occurrence of the external cause; Y99.9 Unspecified external cause status
CPT/HCPCS: 36415; 70450; 70486; 71045; 80053; 83605; 84145; 85025; 87040; 93005; 94640; 96365; 96367; 96375; 99285; J0456; J0696; J2930; J7030; 94760

== ENCOUNTER 2020-02-13 10:32 | Outpatient (CLI) | payer MEDICARE, MEDICAID ==
[~2020-02-13 10:32] MED LIST changes: +ALBU6.7H9 INH
== END 2020-02-13 23:59 | disposition home or self-care (01) ==
LOC: WOUND CARE 10:32 → EDSTATUS 11:00 → WOUND CARE 23:59
PROVIDERS: ATTEND Nurse Practitioner Family
DX: L89.510 Pressure ulcer of right ankle, unstageable (principal); S51.811A Laceration without foreign body of right forearm, initial encounter; R41.3 Other amnesia; I10 Essential (primary) hypertension; E78.5 Hyperlipidemia, unspecified; M19.90 Unspecified osteoarthritis, unspecified site; D64.9 Anemia, unspecified; G30.9 Alzheimer's disease, unspecified; I73.9 Peripheral vascular disease, unspecified; J44.9 Chronic obstructive pulmonary disease, unspecified; I25.10 Atherosclerotic heart disease of native coronary artery without angina pectoris; G89.29 Other chronic pain; E78.00 Pure hypercholesterolemia, unspecified; F02.80 Dementia in other diseases classified elsewhere, unspecified severity, without behavioral disturbance, psychotic disturbance, mood disturbance, and anxiety; F32.9 Major depressive disorder, single episode, unspecified; Z87.891 Personal history of nicotine dependence; Z85.46 Personal history of malignant neoplasm of prostate; Z86.73 Personal history of transient ischemic attack (TIA), and cerebral infarction without residual deficits; Z79.899 Other long term (current) drug therapy; Z98.890 Other specified postprocedural states; Z95.5 Presence of coronary angioplasty implant and graft; X58.XXXA Exposure to other specified factors, initial encounter; Y93.89 Activity, other specified; Y92.89 Other specified places as the place of occurrence of the external cause; Y99.8 Other external cause status
CPT/HCPCS: G0463

== ENCOUNTER 2020-02-17 12:17 | Outpatient (CLI) | payer MEDICARE, MEDICAID ==
[2020-02-17] MEDS ORDERED: LIDOcaine 2% 5ml jelly ONE (13:30)
== END 2020-02-17 23:59 | disposition home or self-care (01) ==
LOC: WOUND CARE 12:17
PROVIDERS: ATTEND Nurse Practitioner
DX: L89.510 Pressure ulcer of right ankle, unstageable (principal); L97.312 Non-pressure chronic ulcer of right ankle with fat layer exposed; R41.3 Other amnesia; I10 Essential (primary) hypertension; E78.5 Hyperlipidemia, unspecified; M19.90 Unspecified osteoarthritis, unspecified site; D64.9 Anemia, unspecified; G30.9 Alzheimer's disease, unspecified; I73.9 Peripheral vascular disease, unspecified; J44.9 Chronic obstructive pulmonary disease, unspecified; I25.10 Atherosclerotic heart disease of native coronary artery without angina pectoris; G89.29 Other chronic pain; E78.00 Pure hypercholesterolemia, unspecified; F02.80 Dementia in other diseases classified elsewhere, unspecified severity, without behavioral disturbance, psychotic disturbance, mood disturbance, and anxiety; F32.9 Major depressive disorder, single episode, unspecified; Z87.891 Personal history of nicotine dependence; Z85.46 Personal history of malignant neoplasm of prostate; Z86.73 Personal history of transient ischemic attack (TIA), and cerebral infarction without residual deficits; Z79.899 Other long term (current) drug therapy; Z98.890 Other specified postprocedural states; Z95.5 Presence of coronary angioplasty implant and graft
CPT/HCPCS: 11042; 73630

== ENCOUNTER → 2020-04-12 | Outpatient (CLI) | payer MEDICARE, MEDICAID ==
[~2020-04-12] MED LIST changes: +LIDOcaine 2% 5ml jelly ONE; +LISI10TA27 PO; -LISI10TA4 PO; -PRIM50TA3 PO; +PRIM50TA5 PO; +SERT-434 PO; -SERT100T10 PO
== END | disposition home or self-care (01) ==
LOC: WOUND CARE 13:00
PROVIDERS: ATTEND Nurse Practitioner
DX: L89.510 Pressure ulcer of right ankle, unstageable (principal); L97.312 Non-pressure chronic ulcer of right ankle with fat layer exposed; R41.3 Other amnesia; I10 Essential (primary) hypertension; E78.5 Hyperlipidemia, unspecified; M19.90 Unspecified osteoarthritis, unspecified site; D64.9 Anemia, unspecified; G30.9 Alzheimer's disease, unspecified; I73.9 Peripheral vascular disease, unspecified; J44.9 Chronic obstructive pulmonary disease, unspecified; I25.10 Atherosclerotic heart disease of native coronary artery without angina pectoris; G89.29 Other chronic pain; E78.00 Pure hypercholesterolemia, unspecified; F02.80 Dementia in other diseases classified elsewhere, unspecified severity, without behavioral disturbance, psychotic disturbance, mood disturbance, and anxiety; F32.9 Major depressive disorder, single episode, unspecified; Z87.891 Personal history of nicotine dependence; Z86.73 Personal history of transient ischemic attack (TIA), and cerebral infarction without residual deficits; Z79.899 Other long term (current) drug therapy; Z98.890 Other specified postprocedural states; Z95.5 Presence of coronary angioplasty implant and graft
CPT/HCPCS: 11042; 97597

== ENCOUNTER 2020-11-06 05:59 | Inpatient (IN) | payer MEDICARE, MEDICAID ==
[~2020-11-06] VITALS: Ht 175.3 cm; Wt 79.5 kg
[~2020-11-06 05:59] MED LIST changes: +CYCL1DRO EACHEYE; -DONE-46 PO; +DONE10TA44 PO; +HYDR-3965 PO; -LIDOcaine 2% 5ml jelly ONE; -PRIM50TA5 PO
[2020-11-06] MEDS ORDERED: famotidine/PF 10 mg/ml inj IV ONE (06:15)
[2020-11-06] MEDS ORDERED: pantoprazole 40 MG vial IV ONE (06:15)
[2020-11-06 06:30] LABS: BASOPHILS # (AUTO) 0.1 X10'3 (0-0.2); EOSINOPHILS # (AUTO) 0.5 X10'3 (0-0.9); EOSINOPHILS % (AUTO) 7.5 % (0-6); HEMATOCRIT 38.7 % (42.0-52.0); HEMOGLOBIN 12.9 g/dl (14.0-17.9); LYMPHOCYTES # (AUTO) 1.7 X10'3 (1.1-4.8); LYMPHOCYTES % (AUTO) 23.5 % (21-51); MEAN CORPUSCULAR HEMOGLOBIN 32.1 PG (27.0-31.0); MEAN CORPUSCULAR HGB CONC 33.4 g/dL (33.0-36.5); MEAN CORPUSCULAR VOLUME 96.3 FL (78-98); MEAN PLATELET VOLUME 7.7 FL (7.4-10.4); MONOCYTES # (AUTO) 0.8 X10'3 (0-0.9); MONOCYTES % (AUTO) 10.9 % (2-12); NEUTROPHILS # (AUTO) 4.1 X10'3 (1.8-7.7); NEUTROPHILS % (AUTO) 57.1 % (42-75); PLATELET COUNT 211 X10'3 (140-440); RED BLOOD COUNT 4.02 X10'6 (4.70-6.10); RED CELL DISTRIBUTION WIDTH 14.1 % (11.5-14.5); WHITE BLOOD COUNT 7.3 X10'3 (4.5-11.0)
[2020-11-06 06:35] LABS: PARTIAL THROMBOPLASTIN TIME 28 SECONDS (22-32)
[2020-11-06 06:37] LABS: ALANINE AMINOTRANSFERASE 39 U/L (12-78); ALBUMIN 3.2 G/DL (3.4-5.0); ALBUMIN/GLOBULIN RATIO 0.8 (1.1-1.5); ALKALINE PHOSPHATASE 119 IU/L (46-116); ANION GAP 9 (8-16); ASPARTATE AMINO TRANSFERASE 32 U/L (10-37); BILIRUBIN,TOTAL 0.2 MG/DL (0.1-1.0); BLOOD UREA NITROGEN 36 MG/DL (7-18); BUN/CREATININE RATIO 31.9 (5.4-32.0); CALCIUM 8.7 MG/DL (8.5-10.1); CHLORIDE 108 MMOL/L (99-107); CREATININE 1.13 MG/DL (0.60-1.10); GLUCOSE 121 MG/DL (70-104); POTASSIUM 3.9 MMOL/L (3.5-5.1); SODIUM 142 MMOL/L (135-145); TOTAL CARBON DIOXIDE 24.9 MMOL/L (24-32); TOTAL PROTEIN 7.1 G/DL (6.4-8.2); eGFR 61 ML/MIN
[2020-11-06] MEDS: pantoprazole 40MG/NS 100ML BAG 100 ML IV SCH ×4 (06:38→22:40)
[2020-11-06] MEDS ORDERED: acetaminophen 325mg tablet PO PRN (09:15)
[2020-11-06] MEDS ORDERED: ondansetron/PF 4mg/2ml inj IV PRN (09:15)
[2020-11-06] MEDS ORDERED: magnesium hydroxide 30ml (MOM) UD suspension PO PRN (09:15)
[2020-11-06] MEDS ORDERED: morphine 2 MG/ML inj. syringe IV PRN (09:15)
[2020-11-06] MEDS ORDERED: mag hydrox/Alum hydrox/simeth 30ml oral suspension PO PRN (09:15)
--- NOTE | 2020-11-06 09:44 | NUR ---
pt son Elmer [phone] wants to be called once on floor.
[2020-11-06] MEDS: normal saline 1000ml 1,000 ML IV SCH ×2 (09:57→23:01)
--- NOTE | 2020-11-06 10:56 | NUR ---
pt pulled out iv, new one started by Carla BARNARD in [facility]
[2020-11-06] MEDS ORDERED: HYDR-3972 PO (11:23)
[2020-11-06] MEDS ORDERED: LISI2.5T14 PO (11:23)
--- NOTE | 2020-11-06 11:30 | NUR ---
Patient in room PCU 3012. I have received report from Juanjose BARNARD from ER and had the opportunity to ask questions and will assume patient care when he arrives to the floor.
[2020-11-06 11:45] VITALS: BP 151/64
--- NOTE | 2020-11-06 11:45 | NUR ---
Patient arrived to the floor, he is stable. Vital signs documented.
--- NOTE | 2020-11-06 12:00 | NUR ---
agree with Assessment made by Juanjose BARNARD
--- NOTE | 2020-11-06 13:39 | NUR ---
PAGER ID: [phone] MESSAGE: patient Shira Mir room 3012A has a BP of 151/64. There are no BP meds available on the eMAR, Please advise. [place] ext [phone]
--- NOTE | 2020-11-06 14:56 | NUR ---
PAGER ID: [phone] MESSAGE: Patient Shira Mir room 3012A is incontinent. He has ripped off the condom cath several times and I have been unable to collect urine. May I straight cath him for the urinalysis?
[2020-11-06 15:00] VITALS: BP 186/83
[2020-11-06 16:37] LABS: OCCULT BLOOD STOOL NEGATIVE (Neg)
--- NOTE | 2020-11-06 16:50 | NUR ---
Due medications given. Urine sample obtained via straight catheter, patient tolerated well. Urine noted cloudy with sediments. PIV 20 g inserted to right wrist and secured with coban. Bedding changed. Sitter at bedside. half side rails up.
[2020-11-06] MEDS: piperacillin/tazo 3.375gm/50ml 50 ML IV SCH (17:05)
[2020-11-06 17:10] LABS: CLARITY,URINE TURBID (Clear); COLOR,URINE YELLOW (Yellow); GLUCOSE, URINE NEGATIVE (Neg); KETONES,URINE NEGATIVE (Neg); NITRITES, URINE POSITIVE (Neg); OCCULT BLOOD,URINE MODERATE (Neg); PROTEIN,URINE NEGATIVE (Neg); UA COLLECTION TYPE STRAIGHT CATH
[2020-11-06 17:11] LABS: LEUKOCYTE ESTERASE ,URINE LARGE (Neg); UROBILINOGEN,URINE 0.2 E.U/dL (0.2-1.0)
[2020-11-06 17:17] LABS: BACTERIA,URINE 3+ /HPF (Neg); WBC,URINE TNTC /HPF (0-4)
[2020-11-06 17:24] LABS: RBC,URINE 0-2 /HPF (0-2); SQUAMOUS EPITHELIAL CELL,UR FEW /LPF (FEW)
--- NOTE | 2020-11-06 17:26 | NUR ---
PAGER ID: [phone] MESSAGE: [facility] room 3018L occult stool is negative, urine culture is indicated. [place] Ext [phone]
[2020-11-06 18:00] VITALS: BP 140/71
--- NOTE | 2020-11-06 18:31 | NUR ---
Patient in room PCU 3012. I have received report from EVON Rehman and had the opportunity to ask questions and assume patient care.
--- NOTE | 2020-11-06 18:33 | NUR ---
Problems reprioritized. Patient report given, questions answered & plan of care reviewed with tiffanie BARNARD.
--- NOTE | 2020-11-06 19:00 | NUR ---
Pt receiving Dialysis. Addendum: 11/06/20 at 2322 by Raquel Nuñez RN This note was added by accident. Pt is not receiving dialysis.
[2020-11-06] MEDS: docusate sod 100mg capsule PO SCH (19:53)
[2020-11-06] MEDS: ferrous sulfate 325mg tablet PO SCH (20:00)
[2020-11-06] MEDS ORDERED: HYDROcodone/acetaminophen 10/325mg tab PO PRN (20:00)
[2020-11-06] MEDS: oxybutynin 5mg tablet PO SCH (20:00)
[2020-11-06] MEDS ORDERED: diltiazem CD 180mg cap (once-daily) PO SCH (21:00)
[2020-11-06] MEDS ORDERED: fludrocortisone acetate 0.1mg tablet PO SCH (21:00)
[2020-11-06] MEDS ORDERED: pravastatin 40mg tablet PO SCH (21:00)
[2020-11-06 22:40] VITALS: BP 160/84
[2020-11-06] MEDS: carbidoba-levodopa 25-100mg tablet PO SCH (22:40)
[2020-11-06] MEDS: famotidine 20mg tablet PO SCH (22:40)
--- NOTE | 2020-11-06 23:23 | NUR ---
Medications were added to eMAR after the Colace was given and Pt assessment was done.
[2020-11-07] MEDS: piperacillin/tazo 3.375gm/50ml 50 ML IV SCH ×3 (00:27→15:54)
--- NOTE | 2020-11-07 01:14 | NUR ---
Pt would not allow the tech to take the 2200 V/S
[2020-11-07 02:00] VITALS: BP 92/71
[2020-11-07] MEDS: pantoprazole 40MG/NS 100ML BAG 100 ML IV SCH ×4 (03:32→15:50)
[2020-11-07] MEDS: normal saline 1000ml 1,000 ML IV SCH ×2 (06:00→15:15)
--- NOTE | 2020-11-07 06:57 | NUR ---
Problems reprioritized. Patient report given, questions answered & plan of care reviewed with Kanhcan RN.
[2020-11-07 07:00] VITALS: BP 132/67
[2020-11-07 07:00] LABS: BASOPHILS # (AUTO) 0.1 X10'3 (0-0.2); BASOPHILS % (AUTO) 0.6 % (0-1); EOSINOPHILS # (AUTO) 0.4 X10'3 (0-0.9); EOSINOPHILS % (AUTO) 4.3 % (0-6); HEMATOCRIT 38.6 % (42.0-52.0); LYMPHOCYTES # (AUTO) 1.1 X10'3 (1.1-4.8); LYMPHOCYTES % (AUTO) 11.5 % (21-51); MEAN CORPUSCULAR HEMOGLOBIN 32.3 PG (27.0-31.0); MEAN CORPUSCULAR HGB CONC 33.7 g/dL (33.0-36.5); MEAN PLATELET VOLUME 7.9 FL (7.4-10.4); MONOCYTES # (AUTO) 0.9 X10'3 (0-0.9); MONOCYTES % (AUTO) 9.7 % (2-12); NEUTROPHILS # (AUTO) 7.2 X10'3 (1.8-7.7); NEUTROPHILS % (AUTO) 73.9 % (42-75); PLATELET COUNT 197 X10'3 (140-440); RED BLOOD COUNT 4.03 X10'6 (4.70-6.10); RED CELL DISTRIBUTION WIDTH 13.8 % (11.5-14.5); WHITE BLOOD COUNT 9.7 X10'3 (4.5-11.0)
[2020-11-07 07:23] LABS: ALBUMIN 3.3 G/DL (3.4-5.0); ANION GAP 12 (8-16); BLOOD UREA NITROGEN 20 MG/DL (7-18); BUN/CREATININE RATIO 17.7 (5.4-32.0); CALCIUM 8.9 MG/DL (8.5-10.1); CHLORIDE 110 MMOL/L (99-107); CREATININE 1.13 MG/DL (0.60-1.10); GLUCOSE 136 MG/DL (70-104); POTASSIUM 4.1 MMOL/L (3.5-5.1); SODIUM 144 MMOL/L (135-145); eGFR 61 ML/MIN
[2020-11-07] MEDS: ferrous sulfate 325mg tablet PO SCH (08:00)
[2020-11-07] MEDS: oxybutynin 5mg tablet PO SCH (08:00)
[2020-11-07] MEDS: multivitamins, therapeutics tablet PO SCH (09:58)
[2020-11-07] MEDS: carbidoba-levodopa 25-100mg tablet PO SCH ×2 (09:58→13:00)
[2020-11-07] MEDS: sertraline 50mg tablet PO SCH (09:58)
[2020-11-07] MEDS: famotidine 20mg tablet PO SCH (09:58)
[2020-11-07] MEDS: docusate sod 100mg capsule PO SCH (09:59)
[2020-11-07] MEDS: lisinopril 2.5mg tablet PO SCH (10:00)
[2020-11-07] MEDS: donepezil 5mg tablet PO SCH ×2 (10:00→10:05)
[2020-11-07 11:00] VITALS: BP 111/57
--- NOTE | 2020-11-07 11:00 | NUR ---
Hopitalist called about patient NPO status. Ask for meds to ordered through different route. Charge made aware of request. Dr. Carmona
[2020-11-07 15:00] VITALS: BP 127/68
[2020-11-07 18:00] VITALS: BP 110/67
--- NOTE | 2020-11-07 21:57 | NUR ---
PREVIOUS ZOSYN DOSE WAS NEVER GIVEN. PHARMACY CALLED. PER SEMA FROM PHARMACY IT IS OK TO GIVE THE PREVIOUS OF ZOSYN AND SKIP THE MIDNIGHT DOSE.
[2020-11-07 22:00] VITALS: BP 151/83
[2020-11-08 02:00] VITALS: BP 173/96
[2020-11-08 02:56] VITALS: BP 175/90
--- NOTE | 2020-11-08 03:13 | NUR ---
patient BP increased from last reading. litigation specialist made aware. Encourage to monitor patient closely and call [facility]ita[facility] syslic higher than 180. Patient no apparent distress. recent bp documented. Sitter at bedside. All safety measures in place. Will continue to assess patient BP.
[2020-11-08] MEDS ORDERED: cloNIDine 0.1 MG/24 HOUR patch (7 day patch) TD ONE (03:30)
--- NOTE | 2020-11-08 03:30 | NUR ---
hospitalist called about patient BP 175/90. Order for clonidine 0.1 mg patch once for a week was received. Order input in computer. Waiting for pharmacy to approve and will when ready. Addendum: 11/08/20 at 0335 by Yari Lopez RN hospitalist called about patient BP 175/90. Order for clonidine 0.1 mg patch once for a week was received. Order input in computer. Waiting for pharmacy to approve and will pickler helper when ready.
[2020-11-08 04:30] VITALS: BP 166/90
--- NOTE | 2020-11-08 04:36 | NUR ---
clonidine patch applied on HERMINIA back
[2020-11-08 06:57] LABS: ALBUMIN 3.1 G/DL (3.4-5.0); ANION GAP 15 (8-16); BLOOD UREA NITROGEN 16 MG/DL (7-18); BUN/CREATININE RATIO 13.7 (5.4-32.0); CHLORIDE 110 MMOL/L (99-107); CREATININE 1.17 MG/DL (0.60-1.10); GLUCOSE 117 MG/DL (70-104); SODIUM 146 MMOL/L (135-145); TOTAL CARBON DIOXIDE 21.5 MMOL/L (24-32); eGFR 59 ML/MIN
[2020-11-08 07:00] VITALS: BP 173/96
[2020-11-08 07:01] LABS: POTASSIUM 4.2 MMOL/L (3.5-5.1)
[2020-11-08 07:08] LABS: BASOPHILS # (AUTO) 0.1 X10'3 (0-0.2); BASOPHILS % (AUTO) 0.7 % (0-1); EOSINOPHILS # (AUTO) 0.4 X10'3 (0-0.9); EOSINOPHILS % (AUTO) 5.3 % (0-6); HEMOGLOBIN 13.4 g/dl (14.0-17.9); LYMPHOCYTES # (AUTO) 1.3 X10'3 (1.1-4.8); LYMPHOCYTES % (AUTO) 16.2 % (21-51); MEAN CORPUSCULAR HEMOGLOBIN 31.7 PG (27.0-31.0); MEAN CORPUSCULAR HGB CONC 32.7 g/dL (33.0-36.5); MEAN CORPUSCULAR VOLUME 96.7 FL (78-98); MEAN PLATELET VOLUME 8.1 FL (7.4-10.4); MONOCYTES # (AUTO) 0.8 X10'3 (0-0.9); MONOCYTES % (AUTO) 10.6 % (2-12); NEUTROPHILS # (AUTO) 5.2 X10'3 (1.8-7.7); NEUTROPHILS % (AUTO) 67.2 % (42-75); PLATELET COUNT 193 X10'3 (140-440); RED BLOOD COUNT 4.24 X10'6 (4.70-6.10); WHITE BLOOD COUNT 7.7 X10'3 (4.5-11.0)
[2020-11-08] MEDS: multivitamins, therapeutics tablet PO SCH (08:00)
[2020-11-08] MEDS: sertraline 50mg tablet PO SCH (08:00)
[2020-11-08] MEDS: lisinopril 2.5mg tablet PO SCH (08:00)
[2020-11-08 11:00] VITALS: BP 147/94
[2020-11-08] MEDS ORDERED: DILT240C94 PO (12:00)
[2020-11-08] MEDS ORDERED: AMOX-580 PO (12:00)
--- NOTE | 2020-11-08 14:41 | NUR ---
patient discharged home accompanied by patient's son on private car. patient escorted off unit on a wheelchair with a greenhouse staff. patient was alert and within baseline mental status with stable viral signs.patients has wound care supplement from the wound care nurse .
[2020-11-08] MEDS ORDERED: apixaban 5mg tablet PO SCH (20:00)
== END 2020-11-08 14:00 | disposition home or self-care (01) | DRG 392 ==
LOC: ER 06:00 → ED HOLD 09:16 → PCU 3S 11:45
PROVIDERS: ADMIT Family Medicine; ATTEND Family Medicine
DX: K57.32 Diverticulitis of large intestine without perforation or abscess without bleeding (principal); I25.10 Atherosclerotic heart disease of native coronary artery without angina pectoris; G89.4 Chronic pain syndrome; K64.9 Unspecified hemorrhoids; I12.9 Hypertensive chronic kidney disease with stage 1 through stage 4 chronic kidney disease, or unspecified chronic kidney disease; D64.9 Anemia, unspecified; E78.00 Pure hypercholesterolemia, unspecified; E78.5 Hyperlipidemia, unspecified; N18.9 Chronic kidney disease, unspecified; F02.80 Dementia in other diseases classified elsewhere, unspecified severity, without behavioral disturbance, psychotic disturbance, mood disturbance, and anxiety; F32.9 Major depressive disorder, single episode, unspecified; F41.9 Anxiety disorder, unspecified; M19.90 Unspecified osteoarthritis, unspecified site; R00.0 Tachycardia, unspecified; G20 Parkinson's disease; I48.0 Paroxysmal atrial fibrillation; Z78.1 Physical restraint status; Z79.01 Long term (current) use of anticoagulants; Z86.73 Personal history of transient ischemic attack (TIA), and cerebral infarction without residual deficits; Z98.61 Coronary angioplasty status; Z79.899 Other long term (current) drug therapy
CPT/HCPCS: 36415; 71045; 74176; 80048; 80053; 81001; 82272; 85025; 85610; 85730; 86885; 86900; 86901; 87077; 87081; 87088; 87186; 93005; 96374; 96375; 99285; C9113; G0378; J2543; J3490; J7030

== ENCOUNTER 2021-05-09 16:06 | Inpatient (IN) | payer MEDICARE, MEDICAID ==
[~2021-05-09] VITALS: Ht 180.3 cm; Wt 72.8 kg
[~2021-05-09 16:06] MED LIST changes: -ALBU6.7H9 INH; +AMOX-580 PO; -CYCL1DRO EACHEYE; -DILT180C53 PO; +DILT240C94 PO; -HYDR-3965 PO; +HYDR-3972 PO; -LISI10TA27 PO; +LISI2.5T14 PO
[2021-05-09 17:55] LABS: BASOPHILS # (AUTO) 0.1 X10'3 (0-0.2); BASOPHILS % (AUTO) 0.9 % (0-1); EOSINOPHILS # (AUTO) 0.4 X10'3 (0-0.9); EOSINOPHILS % (AUTO) 4.1 % (0-6); HEMATOCRIT 40.2 % (42.0-52.0); HEMOGLOBIN 12.8 g/dl (14.0-17.9); LYMPHOCYTES % (AUTO) 22.8 % (21-51); MEAN CORPUSCULAR HEMOGLOBIN 29.3 PG (27.0-31.0); MEAN CORPUSCULAR HGB CONC 31.9 g/dL (33.0-36.5); MEAN CORPUSCULAR VOLUME 91.9 FL (78-98); MEAN PLATELET VOLUME 7.4 FL (7.4-10.4); MONOCYTES # (AUTO) 0.8 X10'3 (0-0.9); MONOCYTES % (AUTO) 9.3 % (2-12); NEUTROPHILS # (AUTO) 5.6 X10'3 (1.8-7.7); NEUTROPHILS % (AUTO) 62.9 % (42-75); PLATELET COUNT 257 X10'3 (140-440); RED BLOOD COUNT 4.38 X10'6 (4.70-6.10); RED CELL DISTRIBUTION WIDTH 14.4 % (11.5-14.5); WHITE BLOOD COUNT 8.9 X10'3 (4.5-11.0)
[2021-05-09] MEDS ORDERED: ALBU2.5V10 NEB (17:56)
[2021-05-09] MEDS ORDERED: DILT-36 PO (17:56)
[2021-05-09] MEDS ORDERED: SUCR1TAB PO (17:56)
[2021-05-09] MEDS ORDERED: BUDE10.26 INH (17:56)
[2021-05-09] MEDS ORDERED: OMEG-79 PO (17:56)
[2021-05-09 18:10] LABS: ALANINE AMINOTRANSFERASE 46 U/L (12-78); ALBUMIN 3.4 G/DL (3.4-5.0); ALBUMIN/GLOBULIN RATIO 0.8 (1.1-1.5); ALKALINE PHOSPHATASE 127 IU/L (46-116); ANION GAP 11 (8-16); ASPARTATE AMINO TRANSFERASE 30 U/L (10-37); BILIRUBIN,TOTAL 0.2 MG/DL (0.1-1.0); BLOOD UREA NITROGEN 26 MG/DL (7-18); BUN/CREATININE RATIO 24.8 (5.4-32.0); CALCIUM 9.9 MG/DL (8.5-10.1); CHLORIDE 107 MMOL/L (99-107); CREATININE 1.05 MG/DL (0.60-1.10); GLUCOSE 135 MG/DL (70-104); POTASSIUM 4.4 MMOL/L (3.5-5.1); SODIUM 143 MMOL/L (135-145); TOTAL CARBON DIOXIDE 25.5 MMOL/L (24-32); TOTAL PROTEIN 7.8 G/DL (6.4-8.2); eGFR 67 ML/MIN
[2021-05-09 18:20] LABS: LIPASE 56 U/L (73-393)
--- NOTE | 2021-05-09 19:00 | NUR ---
took over patient form [place] RN, patient is being feed in the room
[2021-05-09] MEDS ORDERED: albuterol 2.5 MG/3 ML nebule NEB PRN (20:25)
[2021-05-09] MEDS ORDERED: mag hydrox/Alum hydrox/simeth 30ml oral suspension PO PRN (20:25)
[2021-05-09] MEDS ORDERED: HYDROcodone/acetaminophen 10/325mg tab PO PRN (20:25)
[2021-05-09] MEDS ORDERED: magnesium hydroxide 30ml (MOM) UD suspension PO PRN (20:25)
[2021-05-09] MEDS ORDERED: ondansetron/PF 4mg/2ml inj IV PRN (20:25)
[2021-05-09] MEDS ORDERED: morphine 2 MG/ML inj. syringe IV PRN ×2 (20:25)
[2021-05-09] MEDS ORDERED: acetaminophen 325mg tablet PO PRN (20:25)
--- NOTE | 2021-05-09 21:19 | NUR ---
Patient in room STEVE 357. I have received report from EVON Hendrix and had the opportunity to ask questions and assume patient care.
[2021-05-09] MEDS: albuterol 2.5 MG/3 ML nebule NEB SCH (21:25)
[2021-05-09] MEDS: dextrose 5%-1/2 normal saline 1,000 ML IV SCH (21:30)
[2021-05-09] MEDS: fludrocortisone acetate 0.1mg tablet PO SCH (21:33)
[2021-05-09] MEDS: carbidoba-levodopa 25-100mg tablet PO SCH (21:33)
[2021-05-09] MEDS: pravastatin 40mg tablet PO SCH (21:33)
[2021-05-09] MEDS: sucralfate 1 gm tablet PO SCH (21:33)
[2021-05-09 21:34] VITALS: BP 139/67
[2021-05-09 22:00] VITALS: BP 168/72
[2021-05-10 02:28] LABS: CLARITY,URINE CLEAR (Clear); COLOR,URINE YELLOW (Yellow); GLUCOSE, URINE NEGATIVE (Neg); KETONES,URINE NEGATIVE (Neg); LEUKOCYTE ESTERASE ,URINE NEGATIVE (Neg); NITRITES, URINE NEGATIVE (Neg); OCCULT BLOOD,URINE TRACE-INTACT (Neg); PROTEIN,URINE NEGATIVE (Neg); UROBILINOGEN,URINE 0.2 E.U/dL (0.2-1.0)
[2021-05-10 02:30] LABS: UA COLLECTION TYPE NON-SPECIFIED
[2021-05-10 02:35] LABS: BACTERIA,URINE NONE SEEN /HPF (Neg); MUCUS STRANDS NONE SEEN /LPF (Neg); RBC,URINE 0-2 /HPF (0-2); SQUAMOUS EPITHELIAL CELL,UR NONE SEEN /LPF (FEW); WBC,URINE 0-4 /HPF (0-4)
--- NOTE | 2021-05-10 06:18 | NUR ---
Problems reprioritized. Patient report given, questions answered & plan of care reviewed with EVON Mcmahon.
[2021-05-10] MEDS: sucralfate 1 gm tablet PO SCH ×4 (07:00→21:00)
[2021-05-10 07:08] LABS: BASOPHILS % (AUTO) 0.7 % (0-1); EOSINOPHILS # (AUTO) 0.3 X10'3 (0-0.9); EOSINOPHILS % (AUTO) 4.9 % (0-6); HEMATOCRIT 36.6 % (42.0-52.0); LYMPHOCYTES # (AUTO) 1.2 X10'3 (1.1-4.8); LYMPHOCYTES % (AUTO) 18.8 % (21-51); MEAN CORPUSCULAR HEMOGLOBIN 29.8 PG (27.0-31.0); MEAN CORPUSCULAR HGB CONC 32.8 g/dL (33.0-36.5); MEAN CORPUSCULAR VOLUME 90.8 FL (78-98); MEAN PLATELET VOLUME 7.5 FL (7.4-10.4); MONOCYTES # (AUTO) 0.7 X10'3 (0-0.9); MONOCYTES % (AUTO) 10.2 % (2-12); NEUTROPHILS # (AUTO) 4.3 X10'3 (1.8-7.7); NEUTROPHILS % (AUTO) 65.4 % (42-75); PLATELET COUNT 202 X10'3 (140-440); RED BLOOD COUNT 4.03 X10'6 (4.70-6.10); RED CELL DISTRIBUTION WIDTH 14.8 % (11.5-14.5); WHITE BLOOD COUNT 6.6 X10'3 (4.5-11.0)
[2021-05-10 07:41] LABS: ALBUMIN 2.8 G/DL (3.4-5.0); ANION GAP 10 (8-16); BLOOD UREA NITROGEN 23 MG/DL (7-18); BUN/CREATININE RATIO 24.2 (5.4-32.0); CALCIUM 9.3 MG/DL (8.5-10.1); CHLORIDE 106 MMOL/L (99-107); CREATININE 0.95 MG/DL (0.60-1.10); GLUCOSE 165 MG/DL (70-104); POTASSIUM 3.8 MMOL/L (3.5-5.1); SODIUM 141 MMOL/L (135-145); TOTAL CARBON DIOXIDE 25.3 MMOL/L (24-32); eGFR 75 ML/MIN
--- NOTE | 2021-05-10 07:46 | NUR ---
MD Nash called the floor to speak with another nurse. She was made aware that ST evaled pt this AM and wants pt. NPO. States a peg tube needs to be placed. aware PO medications ordered will not be given this AM.
--- NOTE | 2021-05-10 07:49 | NUR ---
Called pharmacy to see if any PO medications can be changed to IV. Only medication is ditalizem which that medication can not be on a IV drip on the surgical floor.
[2021-05-10] MEDS: apixaban 5mg tablet PO SCH ×2 (07:51→21:42)
[2021-05-10] MEDS: docusate sod 100mg capsule PO SCH ×2 (07:51→21:41)
[2021-05-10] MEDS: donepezil 5mg tablet PO SCH (07:51)
[2021-05-10] MEDS: oxybutynin 5mg tablet PO SCH ×2 (07:51→21:41)
[2021-05-10] MEDS: diltiazem CD 180mg cap (once-daily) PO SCH (07:51)
[2021-05-10] MEDS: OMEGA-3/DHA/EPA/FISH OIL 1 EACH CAPSULE.DR PO SCH (07:52)
[2021-05-10] MEDS: multivitamins, therapeutics tablet PO SCH (07:52)
[2021-05-10] MEDS: carbidoba-levodopa 25-100mg tablet PO SCH ×3 (07:52→21:00)
[2021-05-10] MEDS: ferrous sulfate 325mg tablet PO SCH ×2 (07:52→21:42)
[2021-05-10] MEDS: sertraline 50mg tablet PO SCH (07:52)
[2021-05-10 08:00] VITALS: BP 178/98
[2021-05-10] MEDS ORDERED: famotidine 20mg tablet PO SCH (08:00)
--- NOTE | 2021-05-10 08:21 | NUR ---
PAGER ID: [phone] MESSAGE: Shira Mir 345A Pt HR 92 BP 178/98 NPO needs IV BP med please. thank you. Salome [phone]
[2021-05-10] MEDS ORDERED: hydrALAZINE 20mg/ml inj. IV ONE (08:30)
[2021-05-10] MEDS: dextrose 5%-1/2 normal saline 1,000 ML IV SCH ×2 (08:39→17:12)
--- NOTE | 2021-05-10 08:55 | NUR ---
PAGER ID: [phone] MESSAGE: Shiralupe Mir 345O Please note CXR. PNA or CHf. LUngs sound bad. Needs scheduled breathing tx, steroids? atb? Lasix? Let me know thank you, Salome [phone]
[2021-05-10] MEDS: budesonide 0.5mg/2ml UD nebule IH SCH ×2 (09:37→20:37)
[2021-05-10] MEDS: albuterol 2.5 MG/3 ML nebule NEB SCH ×3 (09:37→20:37)
[2021-05-10 11:00] VITALS: BP 148/72
--- NOTE | 2021-05-10 14:35 | NUR ---
PRESSURE ULCER EDUCATION: DEFINITION: A pressure ulcer is an area of skin that breaks down when you stay in one position too long. The constant pressure against the skin reduces the blood flow to that area and the affected tissue dies. CAUSES: "Being bedridden or in a wheelchair "Fragile skin "Having a chronic condition, such as diabetes or vascular disease "Inability to move certain parts of your body without assistance "Older age "Incontinence of urine or stool SYMPTOMS: "A reddened area that DOES NOT turn white when pressed on - this can be the beginning of a pressure ulcer "A blister, deep sore or a crater - these can be advanced pressure ulcers FIRST AID: "Relieve the pressure on this area "Keep the area clean and dry "Call your primary doctor if you see any of the above symptoms "DO NOT massage the area "DO NOT use a donut shaped or ring shaped pillow- these actually interfere with the blood flow and cause complications PREVENTION: "Check for pressure ulcers everyday "Change position at least every two hours to relieve pressure "Use items that help relieve pressure- pillows, sheepskin, foam padding, and powders. "Keep skin clean and dry "Eat healthy well balanced meals "Exercise daily IF YOU SEE ANY OF THESE SYMPTOMS WHILE IN THE HOSPITAL - TELL YOUR NURSE IMMEDIATELY. IF YOU SEE ANY OF THESE SYMPTOMS WHILE AT HOME OR HAVE ANY QUESTIONS OR CONCERNS ABOUT PRESSURE ULCERS - CALL YOUR PRIMARY DOCTOR IMMEDIATELY. Addendum: 05/10/21 at 1435 by Yoon Raines RN Amended: Links added.
--- NOTE | 2021-05-10 14:38 | NUR ---
PAGER ID: [phone] MESSAGE: Shira iMr 345A Pt. becoming agitated now that his son has discharged. Pulled his IV out. Cant take po meds- Sinemet, BP/HR meds. HR in 110 s sustained. Salome [phone]
--- NOTE | 2021-05-10 14:39 | NUR ---
Christopher Consult: Pt admit for FTT hx son caregiver who had ankle fx and thus unable to care for self per EMR. DX Parkinson's disease w/ dementia, afib, and oropharyngeal dysphagia w/ chronic aspiration pending PEG placement because high-risk of aspiration per ENROLLED AGENT/MD notes. Pt remains NPO receiving D5/half NS at 100ml/hr providing 408 kcals/day. TF recs below once to start using IBW pending scaled wt this admit. Christopher 10 w/ no edema and skin intact per EMR. LBM 05/09. Will monitor for further nutrition intervention needs this admit. Rec: 1. Once TF via PEG per MD; Continuous TF using Jevity 1.2 at 70ml/hr goal would provide 1680ml volume/day, 2016 kcals, 1356ml water, and 93g protein. 2. Once TF; additional water flush 125ml Q4H 3. Once TF; PALB Q /; daily wts 4. routine bowel care 5. scaled wt this admit; monitor for TF adjustment needs pending scaled wt Addendum: 05/10/21 at [address] Amended: Links added.
[2021-05-10] MEDS ORDERED: LORazepam 2 mg/ml vial IV ONE (15:00)
[2021-05-10] MEDS: famotidine/PF 10 mg/ml inj IV SCH (17:12)
--- NOTE | 2021-05-10 17:41 | NUR ---
supervisor pit and auxiliaries aware of transfer order. States will most likely happen after shift change.
--- NOTE | 2021-05-10 18:27 | NUR ---
Gave report to Angelika BARNARD.
[2021-05-10 20:00] VITALS: BP 179/89
[2021-05-10 20:13] LABS: APTT 27 SECONDS (22-32)
[2021-05-10] MEDS: fludrocortisone acetate 0.1mg tablet PO SCH (21:00)
[2021-05-10] MEDS: pravastatin 40mg tablet PO SCH (21:00)
--- NOTE | 2021-05-10 21:40 | NUR ---
Patient in room PCU 3012. I have received report from EVON Carney and had the opportunity to ask questions and assume patient care.
[2021-05-10 22:00] VITALS: BP 178/87
--- NOTE | 2021-05-10 22:00 | NUR ---
Talked to son Elmer ,let him know that pt. got transfer.He absolutely said no feeding tube placement on his father.It any changes he needed to know.We will continue with pt. care.
[2021-05-11 02:00] VITALS: BP 144/85
[2021-05-11] MEDS: albuterol 2.5 MG/3 ML nebule NEB SCH ×4 (02:22→19:45)
[2021-05-11] MEDS: dextrose 5%-1/2 normal saline 1,000 ML IV SCH ×3 (04:16→22:25)
[2021-05-11 06:00] VITALS: BP 158/91
--- NOTE | 2021-05-11 06:29 | NUR ---
Problems reprioritized. Patient report given, questions answered & plan of care reviewed with EVON Palmer.
[2021-05-11] MEDS: sucralfate 1 gm tablet PO SCH ×4 (07:00→21:00)
[2021-05-11] MEDS: budesonide 0.5mg/2ml UD nebule IH SCH ×2 (07:23→19:45)
[2021-05-11 07:39] LABS: BASOPHILS % (AUTO) 0.5 % (0-1); EOSINOPHILS # (AUTO) 0.2 X10'3 (0-0.9); EOSINOPHILS % (AUTO) 1.9 % (0-6); HEMATOCRIT 36.6 % (42.0-52.0); HEMOGLOBIN 12.2 g/dl (14.0-17.9); LYMPHOCYTES # (AUTO) 1.1 X10'3 (1.1-4.8); MEAN CORPUSCULAR HEMOGLOBIN 30.4 PG (27.0-31.0); MEAN CORPUSCULAR HGB CONC 33.4 g/dL (33.0-36.5); MEAN CORPUSCULAR VOLUME 90.9 FL (78-98); MEAN PLATELET VOLUME 7.8 FL (7.4-10.4); MONOCYTES # (AUTO) 0.8 X10'3 (0-0.9); NEUTROPHILS # (AUTO) 6.5 X10'3 (1.8-7.7); NEUTROPHILS % (AUTO) 75.6 % (42-75); PLATELET COUNT 221 X10'3 (140-440); RED BLOOD COUNT 4.03 X10'6 (4.70-6.10); RED CELL DISTRIBUTION WIDTH 13.9 % (11.5-14.5); WHITE BLOOD COUNT 8.6 X10'3 (4.5-11.0)
[2021-05-11] MEDS: donepezil 5mg tablet PO SCH (08:00)
[2021-05-11] MEDS: docusate sod 100mg capsule PO SCH ×2 (08:00→20:00)
[2021-05-11] MEDS: oxybutynin 5mg tablet PO SCH ×2 (08:00→20:00)
[2021-05-11] MEDS: apixaban 5mg tablet PO SCH ×2 (08:00→20:00)
[2021-05-11] MEDS: diltiazem CD 180mg cap (once-daily) PO SCH (08:00)
[2021-05-11] MEDS: ferrous sulfate 325mg tablet PO SCH ×2 (08:00→20:00)
[2021-05-11] MEDS: sertraline 50mg tablet PO SCH (08:00)
[2021-05-11] MEDS: carbidoba-levodopa 25-100mg tablet PO SCH ×3 (08:00→21:00)
[2021-05-11] MEDS: OMEGA-3/DHA/EPA/FISH OIL 1 EACH CAPSULE.DR PO SCH (08:00)
[2021-05-11] MEDS: multivitamins, therapeutics tablet PO SCH (08:00)
[2021-05-11 08:03] LABS: ALBUMIN 2.9 G/DL (3.4-5.0); ANION GAP 12 (8-16); BLOOD UREA NITROGEN 13 MG/DL (7-18); BUN/CREATININE RATIO 14.6 (5.4-32.0); CALCIUM 9.2 MG/DL (8.5-10.1); CHLORIDE 106 MMOL/L (99-107); CREATININE 0.89 MG/DL (0.60-1.10); GLUCOSE 165 MG/DL (70-104); SODIUM 142 MMOL/L (135-145); TOTAL CARBON DIOXIDE 24.1 MMOL/L (24-32); eGFR 81 ML/MIN
[2021-05-11 11:00] VITALS: BP 162/75
[2021-05-11] MEDS: famotidine/PF 10 mg/ml inj IV SCH (11:27)
[2021-05-11 15:00] VITALS: BP 135/99
[2021-05-11 18:00] VITALS: BP 126/85
--- NOTE | 2021-05-11 18:44 | NUR ---
Problems reprioritized. Patient report given, questions answered & plan of care reviewed with EVON Mejia.
[2021-05-11] MEDS: pravastatin 40mg tablet PO SCH (21:00)
[2021-05-11] MEDS: fludrocortisone acetate 0.1mg tablet PO SCH (21:00)
--- NOTE | 2021-05-11 21:10 | NUR ---
HR on monitor noted to be a.fib between 130-140 bpm. bp 140/81 (113). otherwise, asymptomatic with no complaints. Dr. Carmona called. Order received Cardizem at 5mg/hr and carried out.
[2021-05-11] MEDS ORDERED: diltiazem-D5W 125mg/125ml 125 ML IV SCH (21:20)
[2021-05-11 22:00] VITALS: BP 115/51
[2021-05-12] VITALS (7 sets, daily range): BP systolic 132–162; BP diastolic 72–89
--- NOTE | 2021-05-12 00:25 | NUR ---
MD Carmona called d/t pts failed swallow eval . unable to admin eliquest. in a.fib uncontrolled rate. order received to give 1 time dose of enoxaparin. see APR.
[2021-05-12] MEDS ORDERED: enoxaparin 30mg/0.3ml syringe SUBCUT ONE (02:15)
[2021-05-12] MEDS ORDERED: enoxaparin 40mg/0.4ml syringe SUBCUT ONE (02:15)
[2021-05-12] MEDS: albuterol 2.5 MG/3 ML nebule NEB SCH ×4 (03:28→20:58)
--- NOTE | 2021-05-12 06:30 | NUR ---
Patient in room PCU 3012. I have received report from NYDIA BARNARD and had the opportunity to ask questions and assume patient care.
[2021-05-12] MEDS: sucralfate 1 gm tablet PO SCH ×4 (07:00→21:00)
[2021-05-12] MEDS: budesonide 0.5mg/2ml UD nebule IH SCH ×2 (07:17→20:58)
--- NOTE | 2021-05-12 07:21 | NUR ---
Patient is on a [facility] drip report given to Lizet BARNARD
[2021-05-12] MEDS: famotidine/PF 10 mg/ml inj IV SCH (07:37)
[2021-05-12] MEDS: donepezil 5mg tablet PO SCH (07:40)
[2021-05-12] MEDS: oxybutynin 5mg tablet PO SCH ×2 (07:41→20:00)
[2021-05-12] MEDS: docusate sod 100mg capsule PO SCH ×2 (07:41→20:00)
[2021-05-12] MEDS: sertraline 50mg tablet PO SCH (07:42)
[2021-05-12] MEDS: apixaban 5mg tablet PO SCH (07:42)
[2021-05-12] MEDS: carbidoba-levodopa 25-100mg tablet PO SCH ×3 (07:42→21:00)
[2021-05-12] MEDS: ferrous sulfate 325mg tablet PO SCH ×2 (07:42→20:00)
[2021-05-12] MEDS: OMEGA-3/DHA/EPA/FISH OIL 1 EACH CAPSULE.DR PO SCH (07:42)
[2021-05-12] MEDS: multivitamins, therapeutics tablet PO SCH (07:42)
[2021-05-12 07:44] LABS: ALBUMIN 2.8 G/DL (3.4-5.0); ANION GAP 9 (8-16); BASOPHILS % (AUTO) 0.5 % (0-1); BLOOD UREA NITROGEN 11 MG/DL (7-18); BUN/CREATININE RATIO 12.8 (5.4-32.0); CHLORIDE 108 MMOL/L (99-107); CREATININE 0.86 MG/DL (0.60-1.10); EOSINOPHILS # (AUTO) 0.1 X10'3 (0-0.9); EOSINOPHILS % (AUTO) 1.7 % (0-6); GLUCOSE 146 MG/DL (70-104); HEMATOCRIT 36.6 % (42.0-52.0); HEMOGLOBIN 11.9 g/dl (14.0-17.9); LYMPHOCYTES # (AUTO) 1.2 X10'3 (1.1-4.8); MEAN CORPUSCULAR HEMOGLOBIN 29.4 PG (27.0-31.0); MEAN CORPUSCULAR HGB CONC 32.6 g/dL (33.0-36.5); MEAN CORPUSCULAR VOLUME 90.4 FL (78-98); MEAN PLATELET VOLUME 7.9 FL (7.4-10.4); MONOCYTES % (AUTO) 12.1 % (2-12); NEUTROPHILS # (AUTO) 5.6 X10'3 (1.8-7.7); NEUTROPHILS % (AUTO) 70.7 % (42-75); PLATELET COUNT 209 X10'3 (140-440); POTASSIUM 3.6 MMOL/L (3.5-5.1); RED BLOOD COUNT 4.05 X10'6 (4.70-6.10); RED CELL DISTRIBUTION WIDTH 14.3 % (11.5-14.5); SODIUM 143 MMOL/L (135-145); TOTAL CARBON DIOXIDE 26.3 MMOL/L (24-32); WHITE BLOOD COUNT 7.9 X10'3 (4.5-11.0); eGFR 84 ML/MIN
[2021-05-12] MEDS: dextrose 5%-1/2 normal saline 1,000 ML IV SCH ×2 (08:25→19:28)
--- NOTE | 2021-05-12 18:27 | NUR ---
Problems reprioritized. Patient report given, questions answered & plan of care reviewed with Nilesh BARNARD.
[2021-05-12] MEDS: diltiazem-NS 100mg/100ml 100 ML IV SCH (19:27)
[2021-05-12] MEDS ORDERED: enoxaparin 30mg/0.3ml syringe SUBCUT SCH (20:00)
[2021-05-12] MEDS: pravastatin 40mg tablet PO SCH (21:00)
[2021-05-12] MEDS: fludrocortisone acetate 0.1mg tablet PO SCH (21:00)
[2021-05-12] MEDS: enoxaparin 40mg/0.4ml syringe SUBCUT SCH (23:23)
[2021-05-13] VITALS (20 sets, daily range): BP systolic 111–160; BP diastolic 62–97
[2021-05-13] MEDS: albuterol 2.5 MG/3 ML nebule NEB SCH ×4 (03:18→20:11)
[2021-05-13] MEDS: dextrose 5%-1/2 normal saline 1,000 ML IV SCH (04:25)
[2021-05-13 06:18] LABS: BASOPHILS # (AUTO) 0.1 X10'3 (0-0.2); BASOPHILS % (AUTO) 0.6 % (0-1); EOSINOPHILS # (AUTO) 0.2 X10'3 (0-0.9); EOSINOPHILS % (AUTO) 2.2 % (0-6); HEMOGLOBIN 11.7 g/dl (14.0-17.9); LYMPHOCYTES # (AUTO) 0.9 X10'3 (1.1-4.8); LYMPHOCYTES % (AUTO) 10.4 % (21-51); MEAN CORPUSCULAR HEMOGLOBIN 29.8 PG (27.0-31.0); MEAN CORPUSCULAR HGB CONC 32.6 g/dL (33.0-36.5); MEAN CORPUSCULAR VOLUME 91.3 FL (78-98); MONOCYTES % (AUTO) 11.3 % (2-12); NEUTROPHILS # (AUTO) 6.5 X10'3 (1.8-7.7); NEUTROPHILS % (AUTO) 75.5 % (42-75); PLATELET COUNT 212 X10'3 (140-440); RED BLOOD COUNT 3.94 X10'6 (4.70-6.10); RED CELL DISTRIBUTION WIDTH 14.6 % (11.5-14.5); WHITE BLOOD COUNT 8.6 X10'3 (4.5-11.0)
[2021-05-13 06:32] LABS: ALBUMIN 2.7 G/DL (3.4-5.0); ANION GAP 8 (8-16); BLOOD UREA NITROGEN 10 MG/DL (7-18); BUN/CREATININE RATIO 11.1 (5.4-32.0); CALCIUM 9.1 MG/DL (8.5-10.1); CHLORIDE 102 MMOL/L (99-107); GLUCOSE 157 MG/DL (70-104); POTASSIUM 3.7 MMOL/L (3.5-5.1); SODIUM 136 MMOL/L (135-145); TOTAL CARBON DIOXIDE 25.6 MMOL/L (24-32); eGFR 80 ML/MIN
--- NOTE | 2021-05-13 06:33 | NUR ---
Problems reprioritized. Patient report given, questions answered & plan of care reviewed with Ayana BARNARD.
[2021-05-13] MEDS: sucralfate 1 gm tablet PO SCH ×2 (07:00→11:20)
[2021-05-13] MEDS: famotidine/PF 10 mg/ml inj IV SCH (07:40)
[2021-05-13] MEDS: sertraline 50mg tablet PO SCH (08:00)
[2021-05-13] MEDS: docusate sod 100mg capsule PO SCH (08:00)
[2021-05-13] MEDS: carbidoba-levodopa 25-100mg tablet PO SCH ×2 (08:00→12:59)
[2021-05-13] MEDS: OMEGA-3/DHA/EPA/FISH OIL 1 EACH CAPSULE.DR PO SCH (08:00)
[2021-05-13] MEDS: oxybutynin 5mg tablet PO SCH (08:00)
[2021-05-13] MEDS: multivitamins, therapeutics tablet PO SCH (08:00)
[2021-05-13] MEDS: ferrous sulfate 325mg tablet PO SCH (08:00)
[2021-05-13] MEDS: donepezil 5mg tablet PO SCH (08:00)
[2021-05-13] MEDS: budesonide 0.5mg/2ml UD nebule IH SCH ×2 (09:00→20:11)
[2021-05-13] MEDS ORDERED: fentaNYL/PF 50MCG/1 ML 2ML syringe ONE (09:31)
[2021-05-13] MEDS ORDERED: MIDAZolam 1 MG/ML 5ML VIAL ONE (09:31)
--- NOTE | 2021-05-13 09:37 | NUR ---
morning meds PO meds not given - patient failed swallow study and is waiting for PEG tube placement this am.
[2021-05-13] MEDS ORDERED: ceFAZolin 1GM/D5W- ADD-VANTAGE 50 ML IV ONE (09:50)
[2021-05-13] MEDS: normal saline 1000ml 1,000 ML IV SCH ×2 (09:50→20:23)
--- NOTE | 2021-05-13 10:29 | NUR ---
Per telephone conversation with Dr. Astudillo the gtube placed this morning can be used at 1400 today for meds and enteral feeding. He would like a nutrition consult with tube feed started at 30 ml/hr and advance 25 cc every 8 hours until goal reached. He wants residuals every 4 hours and if over 100 ml hold tube feed for an hour recheck residuals and restart. The gtube site also needs to be cleaned several times a day with soap and water or 1/2 strength hydrogen peroxide.
--- NOTE | 2021-05-13 11:07 | NUR ---
patient resting in bed back from GI lab in no acute distress. post op vitals per policy
--- NOTE | 2021-05-13 11:23 | NUR ---
TF Consult: Pt son declined PEG placement though now accepts pending OR for PEG today per EMR. Pt D5/half NS at 100ml/hr now stopped and changed to NS per EMR. 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 Pt would benefit from Og w/ TF water flushes BID for healing needs; recs below. LBM 4/3. Will monitor for TF tolerance and adjustment needs pending scaled wt this admit. Rec: 1. Continuous TF via PEG per MD using Jevity 1.2 at 75ml/hr goal; to provide 1800ml volume/day, 2160 kcals, 1453ml water, and 100g protein. 2. additional water flush 180ml Q4H. Og packet BID w/ free water for wound healing. To administer; mix 1 packet Og w/ 120ml free water and flush 30ml before and after administration. 3. PALB Q /; daily wts 4. routine bowel care 5. scaled wt this admit; monitor for TF adjustment needs pending scaled wt Addendum: 05/13/21 at [address] Amended: Links added.
--- NOTE | 2021-05-13 14:32 | NUR ---
I spoke to Dr. Nash at bedside and asked her to verify tube feed orders so that I can start tube feed.
[2021-05-13] MEDS: diltiazem-NS 100mg/100ml 100 ML IV SCH (14:44)
[2021-05-13] MEDS ORDERED: donepezil 5mg tablet PEG SCH (15:12)
[2021-05-13] MEDS ORDERED: fludrocortisone acetate 0.1mg tablet PEG SCH (15:13)
[2021-05-13] MEDS ORDERED: HYDROcodone/acetaminophen 7.5MG/325MG per 15ml UD CUP PO PRN (15:15)
[2021-05-13] MEDS ORDERED: HYDROcodone/acetaminophen 7.5MG/325MG per 15ml UD CUP PEG PRN (15:15)
[2021-05-13] MEDS ORDERED: magnesium hydroxide 30ml (MOM) UD suspension PEG PRN (15:15)
[2021-05-13] MEDS ORDERED: mag hydrox/Alum hydrox/simeth 30ml oral suspension PEG PRN (15:15)
[2021-05-13] MEDS ORDERED: acetaminophen 325mg/10.15ml oral unit dose solution PEG PRN (15:15)
[2021-05-13] MEDS ORDERED: sertraline 50mg tablet PEG SCH (15:19)
[2021-05-13] MEDS ORDERED: pravastatin 40mg tablet PEG SCH (15:19)
--- NOTE | 2021-05-13 15:27 | NUR ---
tube feed has been verified and I called dietary to bring up jevity so I can start it.
[2021-05-13 15:39] LABS: PREALBUMIN 13.5 MG/DL (19-36)
--- NOTE | 2021-05-13 16:03 | NUR ---
1600 residuals were 0 because tube feed not yet started. I am waiting for dietary to bring it up they have been notified
--- NOTE | 2021-05-13 16:15 | NUR ---
tube feed started at 20ml/hr @1615.
[2021-05-13] MEDS: sucralfate 1 gm tablet PEG SCH ×2 (17:00→20:15)
--- NOTE | 2021-05-13 18:08 | NUR ---
Problems reprioritized. Patient report given, questions answered & plan of care reviewed with Edith BARNARD. Patient resting in bed in no acute distress.
[2021-05-13] MEDS ORDERED: ARGININE/GLUTAMINE/CALCIUM BMB (JUVEN 19.3GM PKT) 1 EACH POWD.PACK PO SCH (20:00)
[2021-05-13] MEDS: ferrous sulfate 300mg/5ml UD oral liquid PEG SCH (20:14)
[2021-05-13] MEDS: carbidoba-levodopa 25-100mg tablet PEG SCH (20:14)
[2021-05-13] MEDS: docusate sodium 100mg/10ml UD cup PEG SCH (20:14)
[2021-05-13] MEDS: enoxaparin 40mg/0.4ml syringe SUBCUT SCH (20:15)
[2021-05-13] MEDS: oxybutynin 5mg tablet PEG SCH (20:15)
[2021-05-14 02:00] VITALS: BP 123/61
[2021-05-14] MEDS: albuterol 2.5 MG/3 ML nebule NEB SCH ×2 (03:27→07:30)
[2021-05-14] MEDS: normal saline 1000ml 1,000 ML IV SCH ×2 (05:48→10:33)
[2021-05-14 05:59] LABS: BASOPHILS % (AUTO) 0.5 % (0-1); EOSINOPHILS # (AUTO) 0.1 X10'3 (0-0.9); EOSINOPHILS % (AUTO) 1.3 % (0-6); HEMATOCRIT 32.9 % (42.0-52.0); HEMOGLOBIN 10.9 g/dl (14.0-17.9); LYMPHOCYTES # (AUTO) 1.1 X10'3 (1.1-4.8); LYMPHOCYTES % (AUTO) 15.1 % (21-51); MEAN CORPUSCULAR HEMOGLOBIN 30.2 PG (27.0-31.0); MEAN CORPUSCULAR HGB CONC 33.1 g/dL (33.0-36.5); MEAN CORPUSCULAR VOLUME 91.2 FL (78-98); MEAN PLATELET VOLUME 8.1 FL (7.4-10.4); MONOCYTES # (AUTO) 0.8 X10'3 (0-0.9); MONOCYTES % (AUTO) 10.4 % (2-12); NEUTROPHILS # (AUTO) 5.5 X10'3 (1.8-7.7); NEUTROPHILS % (AUTO) 72.7 % (42-75); PLATELET COUNT 200 X10'3 (140-440); RED CELL DISTRIBUTION WIDTH 14.3 % (11.5-14.5); WHITE BLOOD COUNT 7.5 X10'3 (4.5-11.0)
[2021-05-14 06:16] LABS: ALBUMIN 2.4 G/DL (3.4-5.0); ANION GAP 11 (8-16); BLOOD UREA NITROGEN 14 MG/DL (7-18); BUN/CREATININE RATIO 14.3 (5.4-32.0); CALCIUM 8.7 MG/DL (8.5-10.1); CHLORIDE 103 MMOL/L (99-107); CREATININE 0.98 MG/DL (0.60-1.10); GLUCOSE 150 MG/DL (70-104); POTASSIUM 3.4 MMOL/L (3.5-5.1); SODIUM 137 MMOL/L (135-145); TOTAL CARBON DIOXIDE 22.9 MMOL/L (24-32); eGFR 72 ML/MIN
--- NOTE | 2021-05-14 06:31 | NUR ---
Patient in room PCU 3012. I have received report from Kristin BARNARD and had the opportunity to ask questions and assume patient care. Patient is resting in bed in no acute distress.
[2021-05-14 07:00] VITALS: BP 129/63
[2021-05-14] MEDS: budesonide 0.5mg/2ml UD nebule IH SCH (07:30)
[2021-05-14] MEDS: ferrous sulfate 300mg/5ml UD oral liquid PEG SCH (07:54)
[2021-05-14] MEDS: sucralfate 1 gm tablet PEG SCH ×2 (07:56→11:56)
[2021-05-14] MEDS: docusate sodium 100mg/10ml UD cup PEG SCH (07:56)
[2021-05-14] MEDS: carbidoba-levodopa 25-100mg tablet PEG SCH ×2 (07:58→15:14)
[2021-05-14] MEDS: oxybutynin 5mg tablet PEG SCH (07:58)
[2021-05-14] MEDS: famotidine/PF 10 mg/ml inj IV SCH (07:58)
[2021-05-14] MEDS ORDERED: MULTIVIT-MIN/FERROUS GLUCONATE 9 MG/15 ML LIQUID PEG SCH (08:00)
--- NOTE | 2021-05-14 09:35 | NUR ---
tube feed advanced to 60ml/hr at 0930 can increase to goal in 8 hours
--- NOTE | 2021-05-14 10:46 | NUR ---
Page Sent promotional table spacer PAGER ID: [phone] MESSAGE: [id number] Adeola. Pt still on Cardizem gtt but is scheduled to go to [facility] this afternoon. Would you like to stop the gtt and convert to cardizem thru the gtube so patient can be DC? Ayana [phone]
[2021-05-14 11:00] VITALS: BP 122/54
[2021-05-14] MEDS ORDERED: diltiazem-D5W 125mg/125ml 125 ML IV SCH (11:20)
[2021-05-14] MEDS ORDERED: potassium bicarbonate/cit acid 25mEq tablet.effervescent PO ONE (11:35)
[2021-05-14] MEDS ORDERED: diltiazem 30mg tablet PEG SCH (11:55)
[2021-05-14 11:56] VITALS: BP 141/97
--- NOTE | 2021-05-14 14:50 | NUR ---
report called to [facility] at [phone] and taken by NEGIN Mcgarry . All questions answered. Patient is ready to go
--- NOTE | 2021-05-14 16:10 | NUR ---
Patient was picked up by [facility]. DC packet and belongings were sent with [facility] personnel . PIV x2 were removed with cannulas intact . Patient stable for transfer.
[2021-05-15] MEDS ORDERED: famotidine 20mg tablet PEG SCH (08:00)
== END 2021-05-14 15:50 | DRG 391 ==
LOC: ER 16:06 → ED HOLD 20:28 → SUR 3N 21:10 → PCU 3S 05-10 21:35
PROVIDERS: ADMIT Internal Medicine; ATTEND Internal Medicine
PROC: 0DH68UZ Insertion of Feeding Device into Stomach, Via Natural or Artificial Opening Endoscopic (ICD-10-PCS; principal; 2021-05-13)
DX: R13.12 Dysphagia, oropharyngeal phase (principal); J69.0 Pneumonitis due to inhalation of food and vomit; R62.7 Adult failure to thrive; Z20.822 Contact with and (suspected) exposure to COVID-19; E78.5 Hyperlipidemia, unspecified; E78.00 Pure hypercholesterolemia, unspecified; F02.80 Dementia in other diseases classified elsewhere, unspecified severity, without behavioral disturbance, psychotic disturbance, mood disturbance, and anxiety; F17.210 Nicotine dependence, cigarettes, uncomplicated; F32.A Depression, unspecified; G20 Parkinson's disease; I10 Essential (primary) hypertension; R32 Unspecified urinary incontinence; I25.10 Atherosclerotic heart disease of native coronary artery without angina pectoris; F41.9 Anxiety disorder, unspecified; G89.29 Other chronic pain; M19.90 Unspecified osteoarthritis, unspecified site; I48.0 Paroxysmal atrial fibrillation; J44.9 Chronic obstructive pulmonary disease, unspecified; Z79.899 Other long term (current) drug therapy; Z86.73 Personal history of transient ischemic attack (TIA), and cerebral infarction without residual deficits; Z87.440 Personal history of urinary (tract) infections; Z68.22 Body mass index [BMI] 22.0-22.9, adult
CPT/HCPCS: 36415; 43246; 71045; 80048; 80053; 81001; 82948; 83690; 83880; 84134; 84443; 84484; 85025; 85610; 85730; 87081; 87635; 92508; 92616; 93005; 94640; 94760; 97162; 97530; 99152; 99285; A4620; B4087; G0378; J0360; J0690; J1650; J2060; J2250; J2270; J3010; J3490; J7030; J7040; J7042

== ENCOUNTER 2021-05-20 03:36 | Emergency (ER) | payer MEDICARE, MEDICAID ==
[~2021-05-20] VITALS: Ht 182.9 cm; Wt 77.3 kg
[~2021-05-20 03:36] MED LIST changes: +ALBU2.5V10 NEB; -AMOX-580 PO; +BUDE10.26 INH; +DILT-36 PO; -DILT240C94 PO; -LISI2.5T14 PO; +OMEG-79 PO; +SUCR1TAB PO
--- NOTE | 2021-05-20 06:21 | NUR ---
patient in the room.awake.
[2021-05-20 06:35] VITALS: BP 150/80
== END 2021-05-20 09:16 | disposition home or self-care (01) ==
LOC: ER 03:37
DX: K94.23 Gastrostomy malfunction (principal); F03.90 Unspecified dementia, unspecified severity, without behavioral disturbance, psychotic disturbance, mood disturbance, and anxiety; I25.10 Atherosclerotic heart disease of native coronary artery without angina pectoris; E78.00 Pure hypercholesterolemia, unspecified; I10 Essential (primary) hypertension; M19.90 Unspecified osteoarthritis, unspecified site; G89.29 Other chronic pain; Z87.440 Personal history of urinary (tract) infections; Z86.73 Personal history of transient ischemic attack (TIA), and cerebral infarction without residual deficits; Z95.5 Presence of coronary angioplasty implant and graft; Z79.899 Other long term (current) drug therapy; Y83.3 Surgical operation with formation of external stoma as the cause of abnormal reaction of the patient, or of later complication, without mention of misadventure at the time of the procedure; Y73.1 Therapeutic (nonsurgical) and rehabilitative gastroenterology and urology devices associated with adverse incidents
CPT/HCPCS: 43762; 99284